=== PATIENT | male | born 1955 | race Caucasian/White ===

== ENCOUNTER → 2020-09-10 | Outpatient (CLI) | payer BC ==
--- NOTE | 2020-09-10 09:41 | Diagnostic Imaging Report ---
INDICATION: Rales. Time of exam 9:14 AM No prior studies are available for comparison. Heart size normal. There appears to be some minimal patchy infiltrates right perihilar region. There is some questionable infiltrate left base as well. No effusion or pneumothorax is seen. IMPRESSION: Patchy bibasilar infiltrates. Dictated by: Dictated on workstation # [id number]
== END ==
LOC: RAD FS 09:10
PROVIDERS: ATTEND Family Medicine
DX: R09.89 Other specified symptoms and signs involving the circulatory and respiratory systems (principal); R91.8 Other nonspecific abnormal finding of lung field
CPT/HCPCS: 71046

== ENCOUNTER 2023-01-19 07:54 | Observation (INO) | payer BC, MEDICARE, OTHER ==
[~2023-01-19] VITALS: Ht 185.5 cm; Wt 90.4 kg
--- NOTE | 2023-01-19 08:06 | ED Cardiac General ---
History of Present Illness General Chief Complaint: Cardiac/General Problems Stated Complaint: TACHY, LEATHA LOWER EXT EDEMA History of Present Illness Date Seen by Provider: Jan 19, 2023 Time Seen by Provider: 08:03 Initial Comments 67-year-old male with PMH of DM2/A-fib diagnosed when he was 37 years old, who was not on any medication for A-fib for the past 20 years or so, is sent here from urgent care for assessment of tachycardia. Patient states that he went to urgent care for leg swelling. In the ER patient is asymptomatic, and does not have any chest pain or shortness of breath. Patient is also denying palpitati ons at this time. Denies abdominal pain, diaphoresis, dizziness, headache, abdominal pain, fever, nausea and vomiting, abdominal distention. Patient used to be on atenolol over 20 years ago, but he stopped it because he was having erection issues at that time, and was not restarted on anything else. Patient is not on a blood thinner. No history of heart attack or strokes. Patient smokes an occasional cigar. Allergies and Home Medications Allergies Coded Allergies: Penicillins (Verified Allergy, Unknown, 01/19/23) Patient Home Medication List Home Medication List Reviewed: Yes Review of Systems Review of Systems Constitutional: no symptoms reported EENTM: No Symptoms Reported Respiratory: No Symptoms Reported Cardiovascular: See HPI, Edema Gastrointestinal: No Symptoms Reported Genitourinary: No Symptoms Reported Musculoskeletal: no symptoms reported Skin: no symptoms reported Psychiatric/Neurological: No Symptoms Reported Endocrine: No Symptoms Reported Hematologic/Lymphatic: No Symptoms Reported Physical Exam Vital Signs Vital Signs - First Documented 01/19/23 08:13 Temp 35.6 Pulse 160 Resp 20 B/P (MAP) 140/102 (115) Pulse Ox 97 O2 Delivery Room Air Capillary Refill : Height, Weight, BMI Height: '" Weight: lbs. oz. kg; BMI Method: General Appearance: No Apparent Distress, WD/WN HEENT: PERRL/EOMI, Other (Papular growth seen externally on the left side of the nose) Neck: Normal Inspection, Non Tender Respiratory: Chest Non Tender, Lungs Clear, Normal Breath Sounds, No Accessory Muscle Use Cardiovascular: Irregularly Irregular, Tachycardia, Other (Bilateral pitting pedal pedal edema, 2+) Gastrointestinal: Normal Bowel Sounds, Non Tender, Soft Extremity: Normal Range of Motion Neurologic/Psychiatric: Alert, Oriented x3, No Motor/Sensory Deficits, Normal Mood/Affect Skin: Normal Color Progress/Results/Core Measures Results/Orders Lab Results Laboratory Tests Test 01/19/23 08:09 Range/Units White Blood Count 10.4 4.3-11.0 10^3/uL Red Blood Count 5.62 H 4.30-5.52 10^6/uL Hemoglobin 17.8 H 13.3-17.7 g/dL Hematocrit 53 40-54 % Mean Corpuscular Volume 95 80-99 fL Mean Corpuscular Hemoglobin 32 25-34 pg Mean Corpuscular Hemoglobin Concent 34 32-36 g/dL Red Cell Distribution Width 14.3 10.0-14.5 % Platelet Count 169 130-400 10^3/uL Mean Platelet Volume 12.0 9.0-12.2 fL Immature Granulocyte % (Auto) 0 % Neutrophils (%) (Auto) 75 42-75 % Lymphocytes (%) (Auto) 15 12-44 % Monocytes (%) (Auto) 9 0-12 % Eosinophils (%) (Auto) 1 0-10 % Basophils (%) (Auto) 1 0-10 % Neutrophils # (Auto) 7.8 1.8-7.8 10^3/uL Lymphocytes # (Auto) 1.5 1.0-4.0 10^3/uL Monocytes # (Auto) 0.9 0.0-1.0 10^3/uL Eosinophils # (Auto) 0.1 0.0-0.3 10^3/uL Basophils # (Auto) 0.1 0.0-0.1 10^3/uL Immature Granulocyte # (Auto) 0.0 0.0-0.1 10^3/uL Prothrombin Time 14.6 12.2-14.7 SEC INR Comment 1.1 0.8-1.4 Activated Partial Thromboplast Time 26 24-35 SEC D-Dimer 1.81 H 0.00-0.49 UG/ML Sodium Level 139 135-145 MMOL/L Potassium Level 3.8 3.6-5.0 MMOL/L Chloride Level 104 98-107 MMOL/L Carbon Dioxide Level 23 21-32 MMOL/L Anion Gap 12 5-14 MMOL/L Blood Urea Nitrogen 27 H 7-18 MG/DL Creatinine 0.91 0.60-1.30 MG/DL Estimat Glomerular Filtration Rate 92 BUN/Creatinine Ratio 30 Glucose Level 248 H 70-105 MG/DL Calcium Level 9.6 8.5-10.1 MG/DL Corrected Calcium 9.4 8.5-10.1 MG/DL Magnesium Level 2.3 1.6-2.4 MG/DL Total Bilirubin 0.9 0.1-1.0 MG/DL Aspartate Amino Transf (AST/SGOT) 139 H 5-34 U/L Alanine Aminotransferase (ALT/SGPT) 162 H 0-55 U/L Alkaline Phosphatase 156 H 40-136 U/L Troponin I < 0.30 <0.30 NG/ML Pro-B-Type Natriuretic Peptide 5438.0 H <125.0 PG/ML Total Protein 7.3 6.4-8.2 GM/DL Albumin 4.2 3.2-4.5 GM/DL Serum Alcohol < 10 <10 MG/DL My Orders Orders - SRINI ALVAREZ MD Continuous Ekg Monitoring (01/19/23 08:06) Ekg Tracing (01/19/23 08:06) Cbc With Automated Diff (01/19/23 08:06) Comprehensive Metabolic Panel (01/19/23 08:06) Fibrin Degradation Products (01/19/23 08:06) Drug Screen Stat (Urine) (01/19/23 08:06) Magnesium (01/19/23 08:06) Protime With Inr (01/19/23 08:06) Partial Thromboplastin Time (01/19/23 08:06) Ua Culture If Indicated (01/19/23 08:06) Probnp Fs (01/19/23 08:06) Troponin I Fs (01/19/23 08:06) Chest 1 View Ap/Pa Only (01/19/23 08:07) Diltiazem Drip Pre-Mix (Cardizem Drip Pr (01/19/23 08:17) Diltiazem Injection (Cardizem Injection) (01/19/23 08:17) Apixaban Tablet (Eliquis Tablet) (01/19/23 08:30) Alcohol (01/19/23 08:57) Ct Angio Chest W (01/19/23 09:03) Iohexol Injection (Omnipaque 350 Mg/Ml 1 (01/19/23 09:15) Received Contrast (Hold Metformin- Contr (01/19/23 09:15) Ns (Ivpb) (Sodium Chloride 0.9% Ivpb Bag (01/19/23 09:15) Ed Admission (Communication) (01/19/23 10:17) Medications Given in ED Current Medications Medications Dose Ordered Sig/Juan J Route Start Time Stop Time Status Last Admin Dose Admin Iohexol 100 ml ONCE ONCE IV 01/19/23 09:15 01/19/23 09:16 DC 01/19/23 09:40 100 ML Sodium Chloride 100 ml ONCE ONCE IV 01/19/23 09:15 01/19/23 09:16 DC 01/19/23 09:40 100 ML Vital Signs/I&O 01/19/23 01/19/23 01/19/23 08:13 08:22 08:35 Temp 35.6 Pulse 160 159 124 Resp 20 B/P (MAP) 140/102 (115) 131/104 113/86 Pulse Ox 97 O2 Delivery Room Air Progress Progress Note : Progress Note 1. A-FIB WITH RVR: - CXR: pleural effusion - EKG shows atrial fibrillation with RVR - Troponin: Undetectable - CBC: Unremarkable except elevated hemoglobin - CMP: elevated liver enzymes with AST: 139, ALT : 162, and alk phos: 156. - s. ETOH: negative - UA: not given -Cardizem bolus 10 mg, and Cardizem drip started - [id number] score is 2 - Eliquis 5 mg tab given prior to labs coming back. After labs came back, noticed that pt has elevated liver enzymes, called cardiology consult and discussed via phone - Discussed with hospitalist and will admit to ICU 2. ELEVATED D-DIMER: - D-dimer is 1.81 - CTA CHEST: Negative fro PE, bilateral pleural effusion, right greater than left 3. CHF: - New onset likely - CXR and CTA chest show pleural effusion, BNP is elevated: 5,438, and clinically bilateral pedal edema present, which indicate a need for CHF work-up - Will need further work-up with cardiology and will need ECHO Diagnostic Imaging Diagonstic Imaging: Xray, CT Plain Films/CT/US/NM/MRI: chest Comments [facility] [place] NAME: [facility]ON [facility]WKINS [facility] REC#: [id number] PT STATUS: REG ER : 1955 PHYSICIAN: SRINI ALVAREZ MD ADMIT DATE: 01/19/23/ER FS Draft Date of Exam:01/19/23 CT ANGIO CHEST W PROCEDURE: CT angiography of the chest with contrast. TECHNIQUE: Multiple contiguous axial images were obtained through the chest after uneventful bolus administration of intravenous contrast. 3D reconstructed CTA MIP acquisitions were also performed. Auto Exposure Controls were utilized during the CT exam to meet ALARA standards for radiation dose reduction. INDICATION: Bilateral leg swelling and shortness of breath. No prior studies are available for comparison. Evaluation of pulmonary arterial system is without evidence of thromboembolus. No definite filling defects are seen within central, lobar or segmental branches. Aorta is normal in caliber. No pericardial fluid is seen. There is trace pleural fluid on the left with small right pleural effusion on the right. No pulmonary infiltrates are seen. There is some compressive atelectasis in the right lower lobe. Upper abdomen does show some trace perihepatic ascites. IMPRESSION: 1. No evidence of pulmonary embolism. 2. Bilateral pleural effusions, right greater with right basilar atelectasis. Dictated on workstation # [id number] Dict: 01/19/2349 Trans: 01/19/23 0959 [facility] [id number] Interpreted by: SUNDEEP IBRAHIM MD Electronically signed by: [facility] [place], [place] NAME: KEYON HAWKINS REC#: [id number] PT STATUS: REG ER : 1955 PHYSICIAN: SRINI ALVAREZ MD ADMIT DATE: 01/19/23/ER FS Draft Date of Exam:01/19/23 CHEST 1 VIEW AP/PA ONLY EXAMINATION: Chest 1 view HISTORY: palpitations COMPARISON: 09/10/2020 FINDINGS: Heart size and pulmonary vasculature are normal. There is a small right pleural effusion. No focal consolidation or pneumothorax. The osseous structures are intact. IMPRESSION: 1. Small right pleural effusion. No other acute radiographic abnormality in the chest. Dictated on workstation # [id number] Dict: 01/19/23825 Trans: 01/19/23827 [id number] Interpreted by: RIDDHI BELTRAN DO Electronically signed by: Departure Communication (Admissions) Time/Spoke to Admitting Phy: 10:10 Discussed with hospitalist, Dr. Martell and accepted to admission to ICU Time/Spoke to Consulting Phy: 09:40 Marah with supervisor wet end, Dr. Ashford. Initial consult concern was giving Eliquis prior to checking LFTs and LFT showing elevated liver enzymes. Reassurance was given by supervisor wet end. Advised admission to ICU since patient is on a Cardizem drip for A-fib with RVR. Impression Primary Impression: Atrial fibrillation with rapid ventricular response Additional Impressions: Elevated d-dimer CHF NYHA class I (no symptoms from ordinary activities) Qualified Codes: I50.9 - Heart failure, unspecified Disposition: 30 STILL A PATIENT Condition: Stable Admissions Decision to Admit Reason: Admit from ER (General) Decision to Admit/Date: Jan 19, 2023 Time/Decision to Admit Time: 09:15 Transfer Method of Transfer: EMS Departure-Patient Inst. Referrals: MIHAELA FARRELL MD (PCP) Primary Care Physician SRINI ALVAREZ MD Jan 19, 2023 08:06
[2023-01-19 08:17] LABS: BASOPHILS # (AUTO) 0.1 10^3/uL (0.0-0.1); BASOPHILS % (AUTO) 1 % (0-10); EOSINOPHILS # (AUTO) 0.1 10^3/uL (0.0-0.3); EOSINOPHILS % (AUTO) 1 % (0-10); HEMATOCRIT 53 % (40-54); HEMOGLOBIN 17.8 g/dL (13.3-17.7); LYMPHOCYTES # (AUTO) 1.5 10^3/uL (1.0-4.0); LYMPHOCYTES % (AUTO) 15 % (12-44); MEAN CORPUSCULAR HEMOGLOBIN 32 pg (25-34); MEAN CORPUSCULAR HGB CONC 34 g/dL (32-36); MEAN CORPUSCULAR VOLUME 95 fL (80-99); MONOCYTES # (AUTO) 0.9 10^3/uL (0.0-1.0); MONOCYTES % (AUTO) 9 % (0-12); NEUTROPHILS # (AUTO) 7.8 10^3/uL (1.8-7.8); NEUTROPHILS % (AUTO) 75 % (42-75); PLATELET COUNT 169 10^3/uL (130-400); WHITE BLOOD COUNT 10.4 10^3/uL (4.3-11.0)
[2023-01-19] MEDS ORDERED: dilTIAZem DRIP PRE-MIX 125 ML IV STA (08:17)
--- NOTE | 2023-01-19 08:29 | Diagnostic Imaging Report ---
EXAMINATION: Chest 1 view HISTORY: palpitations COMPARISON: 09/10/2020 FINDINGS: Heart size and pulmonary vasculature are normal. There is a small right pleural effusion. No focal consolidation or pneumothorax. The osseous structures are intact. IMPRESSION: 1. Small right pleural effusion. No other acute radiographic abnormality in the chest. Dictated by: Dictated on workstation # [id number]
[2023-01-19] MEDS ORDERED: APIXABAN 5 MG (ELIQUIS) TABLET PO STA (08:30)
[2023-01-19 08:32] LABS: INR 1.1 (0.8-1.4); PROTHROMBIN TIME PATIENT 14.6 SEC (12.2-14.7)
[2023-01-19 08:36] LABS: ALANINE AMINOTRANSFERASE 162 U/L (0-55); ALBUMIN 4.2 GM/DL (3.2-4.5); ALKALINE PHOSPHATASE 156 U/L (40-136); BILIRUBIN,TOTAL 0.9 MG/DL (0.1-1.0); BUN/CREATININE RATIO 30; CALCIUM 9.6 MG/DL (8.5-10.1); CARBON DIOXIDE 23 MMOL/L (21-32); CHLORIDE 104 MMOL/L (98-107); CREATININE SERUM 0.91 MG/DL (0.60-1.30); GFR ESTIMATED 92; GLUCOSE 248 MG/DL (70-105); MAGNESIUM 2.3 MG/DL (1.6-2.4); POTASSIUM 3.8 MMOL/L (3.6-5.0); SODIUM 139 MMOL/L (135-145); TOTAL PROTEIN 7.3 GM/DL (6.4-8.2)
[2023-01-19 08:39] LABS: FIBRIN DEGRADATION PRODUCTS 1.81 UG/ML (0.00-0.49)
[2023-01-19] MEDS ORDERED: HOLD METFORMIN - RECEIVED CONTRAST 20 ML VIAL IV SCH (09:15)
[2023-01-19] MEDS ORDERED: IOHEXOL 350 MG/ML 100 ML (OMNIPAQUE 350) VIAL IV ONE (09:15)
[2023-01-19] MEDS ORDERED: NS 100 ML (IVPB) BAG IV ONE (09:15)
--- NOTE | 2023-01-19 09:59 | Diagnostic Imaging Report ---
PROCEDURE: CT angiography of the chest with contrast. TECHNIQUE: Multiple contiguous axial images were obtained through the chest after uneventful bolus administration of intravenous contrast. 3D reconstructed CTA MIP acquisitions were also performed. Auto Exposure Controls were utilized during the CT exam to meet ALARA standards for radiation dose reduction. INDICATION: Bilateral leg swelling and shortness of breath. No prior studies are available for comparison. Evaluation of pulmonary arterial system is without evidence of thromboembolus. No definite filling defects are seen within central, lobar or segmental branches. Aorta is normal in caliber. No pericardial fluid is seen. There is trace pleural fluid on the left with small right pleural effusion on the right. No pulmonary infiltrates are seen. There is some compressive atelectasis in the right lower lobe. Upper abdomen does show some trace perihepatic ascites. IMPRESSION: 1. No evidence of pulmonary embolism. 2. Bilateral pleural effusions, right greater with right basilar atelectasis. Dictated by: Dictated on workstation # [id number]
[2023-01-19] MEDS ORDERED: ANTACID SUSP 30 ML UDC (MYLANTA) PO PRN (11:00)
[2023-01-19] MEDS ORDERED: ACETAMINOPHEN 325 MG TABLET PO PRN (11:00)
[2023-01-19] MEDS ORDERED: ONDANSETRON 4 MG/2 ML (SDV) Z0FRAN IV PRN (11:00)
[2023-01-19] MEDS ORDERED: ONDANSETRON 4 MG (ZOFRAN) ORAL DISSOLVE TAB PO PRN (11:00)
[2023-01-19] MEDS ORDERED: diphenhydrAMINE 50 MG/ML INJ (BENADRYL) IVP PRN (11:00)
[2023-01-19] MEDS ORDERED: BISACODYL 10 MG SUPP (DULCOLAX) PR PRN (11:00)
[2023-01-19] MEDS ORDERED: NS IV 500 ML 500 ML IV PRN (11:00)
[2023-01-19] MEDS ORDERED: diphenhydrAMINE 25 MG TAB (BENADRYL) PO PRN (11:00)
[2023-01-19] MEDS ORDERED: polyethylene glycoL POWDER 17 GM (MIRALAX) PACK PO PRN (11:00)
[2023-01-19] MEDS ORDERED: MELATONIN 3 MG TABLET PO PRN (11:00)
[2023-01-19] MEDS ORDERED: HYDROmorphone 2 MG/ML VIAL (DILAUDID) IV PRN (11:00)
[2023-01-19 12:50] VITALS: BP 140/102
[2023-01-19] MEDS ORDERED: RT-ALBUTEROL/IPRATROPIUM 3 ML (DUONEB) VIAL INH PRN (13:00)
[2023-01-19] MEDS ORDERED: NS IV 1000 ML 1,000 ML IV ONE (13:00)
--- NOTE | 2023-01-19 14:07 | Consultation-Cardiology ---
HPI-Cardiology Cardiology Consultation Date of Consultation 01/19/23 Date of Admission Time Seen by Provider: 14:02 Indication: Atrial fibrillation HPI 67-year-old gentleman with history of diabetes mellitus, hyperlipidemia, history of paroxysmal atrial fibrillation. He was noted to be in atrial fibrillation about 3 to 4 weeks ago with his primary care physician scheduled for an outpatient appointment. Patient canceled his appointment. About 2 days ago started to have increasing pedal edema and difficulty sleeping. He denied any chest pain. No palpitation. No fever or chills. Reported that he had multiple ticks in his body over the last few weeks. Home Medications & Allergies Allergies: Coded Allergies: Penicillins (Verified Allergy, Unknown, 01/19/23) Home Medication List Reviewed: Yes [id number] Hx Patient Social History Marital Status: Employed/Student: employed Alcohol Use?: Yes Past Medical History Discussed below Family Medical History Significant Family History: Heart Disease Review of Systems-General Review of Systems Constitutional: no symptoms reported EENTM: see HPI, no symptoms reported Respiratory: no symptoms reported, see HPI, dyspnea on exertion, orthopnea Cardiovascular: see HPI, edema Gastrointestinal: no symptoms reported, see HPI Genitourinary: no symptoms reported, see HPI Musculoskeletal: no symptoms reported Skin: no symptoms reported Psychiatric/Neurological: No Symptoms Reported Reviewed Test Results Reviewed Test Results Lab Laboratory Tests Test 01/19/23 08:09 01/19/23 12:32 Range/Units White Blood Count 10.4 4.3-11.0 10^3/uL Red Blood Count 5.62 H 4.30-5.52 10^6/uL Hemoglobin 17.8 H 13.3-17.7 g/dL Hematocrit 53 40-54 % Mean Corpuscular Volume 95 80-99 fL Mean Corpuscular Hemoglobin 32 25-34 pg Mean Corpuscular Hemoglobin Concent 34 32-36 g/dL Red Cell Distribution Width 14.3 10.0-14.5 % Platelet Count 169 130-400 10^3/uL Mean Platelet Volume 12.0 9.0-12.2 fL Immature Granulocyte % (Auto) 0 % Neutrophils (%) (Auto) 75 42-75 % Lymphocytes (%) (Auto) 15 12-44 % Monocytes (%) (Auto) 9 0-12 % Eosinophils (%) (Auto) 1 0-10 % Basophils (%) (Auto) 1 0-10 % Neutrophils # (Auto) 7.8 1.8-7.8 10^3/uL Lymphocytes # (Auto) 1.5 1.0-4.0 10^3/uL Monocytes # (Auto) 0.9 0.0-1.0 10^3/uL Eosinophils # (Auto) 0.1 0.0-0.3 10^3/uL Basophils # (Auto) 0.1 0.0-0.1 10^3/uL Immature Granulocyte # (Auto) 0.0 0.0-0.1 10^3/uL Prothrombin Time 14.6 12.2-14.7 SEC INR Comment 1.1 0.8-1.4 Activated Partial Thromboplast Time 26 24-35 SEC D-Dimer 1.81 H 0.00-0.49 UG/ML Sodium Level 139 135-145 MMOL/L Potassium Level 3.8 3.6-5.0 MMOL/L Chloride Level 104 98-107 MMOL/L Carbon Dioxide Level 23 21-32 MMOL/L Anion Gap 12 5-14 MMOL/L Blood Urea Nitrogen 27 H 7-18 MG/DL Creatinine 0.91 0.60-1.30 MG/DL Estimat Glomerular Filtration Rate 92 BUN/Creatinine Ratio 30 Glucose Level 248 H 70-105 MG/DL Calcium Level 9.6 8.5-10.1 MG/DL Corrected Calcium 9.4 8.5-10.1 MG/DL Magnesium Level 2.3 1.6-2.4 MG/DL Total Bilirubin 0.9 0.1-1.0 MG/DL Aspartate Amino Transf (AST/SGOT) 139 H 5-34 U/L Alanine Aminotransferase (ALT/SGPT) 162 H 0-55 U/L Alkaline Phosphatase 156 H 40-136 U/L Troponin I < 0.30 <0.30 NG/ML Pro-B-Type Natriuretic Peptide 5438.0 H <125.0 PG/ML Total Protein 7.3 6.4-8.2 GM/DL Albumin 4.2 3.2-4.5 GM/DL Serum Alcohol < 10 <10 MG/DL Glucometer 155 H 70-110 MG/DL Physical Exam Physical Exam Vital Signs Vital Signs - First Documented 01/19/23 01/19/23 01/19/23 08:13 12:50 13:53 Temp 35.6 Pulse 160 Resp 20 B/P (MAP) 140/102 (115) Pulse Ox 97 O2 Delivery Room Air O2 Flow Rate 0.00 FiO2 21 Capillary Refill : Less Than 3 Seconds Height, Weight, BMI Height: '" Weight: lbs. oz. kg; 25.74 BMI Method: General Appearance: No Apparent Distress, WD/WN Eyes: Bilateral Eye Normal Inspection, Bilateral Eye PERRL, Bilateral Eye EOMI HEENT: PERRL/EOMI, Other (Papular growth seen externally on the left side of the nose) Neck: Normal Inspection, Non Tender Respiratory: Chest Non Tender, Lungs Clear, Normal Breath Sounds, No Accessory Muscle Use Cardiovascular: Irregularly Irregular, Tachycardia, Other (Bilateral pitting pedal pedal edema, 2+) Gastrointestinal: Normal Bowel Sounds, Non Tender, Soft Back: Normal Inspection, No CVA Tenderness, No Vertebral Tenderness Extremity: Normal Range of Motion, Pedal Edema Neurologic/Psychiatric: Alert, Oriented x3, No Motor/Sensory Deficits, Normal Mood/Affect Skin: Normal Color Lymphatic: No Adenopathy A/P-Cardiology Admission Diagnosis Atrial fibrillation Tachycardia Congestive heart failure, acute dilated cardiomyopathy. Unknown etiology Diabetes mellitus Assessment/Plan Atrial fibrillation with rapid ventricular response. Unknown duration, history of paroxysmal atrial fibrillation in his 30s. Has been asymptomatic Noted to have atrial fibrillation within the last month. Currently having rapid ventricular response, started on Cardizem drip and Eliquis Planning for MARK with electrical cardioversion if he did not convert on his own. [id number] score 4, starting on oral anticoagulation with Eliquis. Congestive heart failure, acute left ventricular systolic dysfunction, ejection fraction 35 to 40%. Planning to start beta-blockers and ARB once his blood pressure is more stable. Underlying etiology is unknown could be secondary to atrial fibrillation. Patient had exposure to tick bite. Underlying coronary artery disease cannot be excluded. Borderline hypotension. Secondary to Cardizem drip Monitor blood pressure closely Peripheral edema, planning to start diuresing once his blood pressure is more stable. Hyperlipidemia, evaluate lipid profile Hold statin due to elevated liver enzymes Elevated liver enzymes. Could be passive hepatic congestion. Monitor liver enzymes closely, will hold statin for now Diabetes mellitus, poorly controlled, followed and managed by primary care physician Family history of coronary artery disease Multiple tick bite exposure recently. We will evaluate take panel and Lyme titers Clinical Quality Measures DVT/VTE Risk/Contraindication: Contraindications-Mechi: Other *list below* Other: elevated ddimer may have DVT ANA CRISTINA ROMANO MD Jan 19, 2023 14:07
--- NOTE | 2023-01-19 14:55 | Diagnostic Imaging Report ---
PROCEDURE: US Abdomen, limited. TECHNIQUE: Multiple real-time grayscale images were obtained over the abdomen in various projections. INDICATION: Ascites. COMPARISON: CTA of the chest from earlier same day. FINDINGS: Liver is mildly enlarged. It measures 18.2 cm in length. Hepatic echotexture is within normal limits. No focal suspicious mass is seen. Portal vein shows normal hepatopetal flow. No intra- or extra-hepatic biliary dilatation is present. The common bile duct is not dilated and measures 4-5 mm. Gallbladder is visualized. Gallbladder wall is thickened at 4-5 mm, but there is no evidence of cholelithiasis. No pericholecystic free fluid is seen. Gallbladder does appear incompletely distended. The pancreas is not well visualized due to overlying bowel gas. There is trace ascites. Small right effusion is also noted. The right kidney measures approximately 10.8 cm in length. Small anechoic benign-appearing cyst is present within the mid region and measures 1.3 x 1.1 x 1.1 cm. No suspicious solid renal masses are seen. There is no evidence of hydronephrosis or calculus. Aorta is not well visualized. Visualized portions of the IVC are unremarkable. IMPRESSION: 1. Gallbladder wall is thickened, but this may be related to underdistention. There is no evidence of cholelithiasis or pericholecystic free fluid to suggest acute cholecystitis. Gallbladder wall thickening may also be seen in states of hypoproteinemia and congestive heart or liver failure. 2. Right pleural effusion and trace ascites. 3. Mild hepatomegaly. Dictated by: Dictated on workstation # [id number]
--- NOTE | 2023-01-19 14:55 | Diagnostic Imaging Report ---
PROCEDURE: US Venous Lower Ext Vinnie. TECHNIQUE: Multiple real-time grayscale images were obtained over the lower extremities in various projections, bilaterally. Additional duplex Doppler and color Doppler images were also obtained. INDICATION: Bilateral lower extremity swelling. FINDINGS: There is no evidence of right or left lower extremity DVT. Both lower extremity deep venous systems demonstrate normal compressibility with normal response to augmentation and Valsalva. No fluid collection or mass is detected. IMPRESSION: No evidence of right or left lower extremity DVT. Dictated by: Dictated on workstation # [id number]
[2023-01-19] MEDS ORDERED: ASCO500T17 PO (15:50)
[2023-01-19] MEDS ORDERED: CYAN-41 PO (15:50)
[2023-01-19] MEDS ORDERED: OXYB10TA29 PO (15:50)
[2023-01-19] MEDS ORDERED: TMSL.4C PO (15:50)
[2023-01-19] MEDS ORDERED: FAMO20TA3 PO (15:50)
[2023-01-19] MEDS ORDERED: PRAV40TA2 PO (15:50)
[2023-01-19] MEDS ORDERED: ASPI-1238 PO (15:50)
[2023-01-19] MEDS ORDERED: CANA300T PO (15:50)
[2023-01-19] MEDS ORDERED: GLIM4TAB5 PO (15:50)
[2023-01-19] MEDS: inSUlin ASPART (NovoLOG) 1 UNIT/0.01 ML (CHARGE PER UNIT) SC SCH ×2 (16:40→21:00)
[2023-01-19] MEDS: PANTOPRAZOLE 40 MG (PROTONIX) TAB PO SCH (16:44)
--- NOTE | 2023-01-19 18:20 | History & Physical ---
History of Present Illness HPI/Chief Complaint Chief complaint: A-fib with RVR HPI: This is a 67-year-old male clinic patient of Dr. Wen who has a past medical history of atrial fibrillation since age 37 but presented to the ER for lower extremity edema after he presented to the walk-in clinic and they directed him towards the ER. Echocardiogram was obtained showing ejection fraction of 35%. Pursuing other sources of cardiomyopathy. Patient was placed on ant icoagulation due to stroke risk. Source: patient, family, RN/MD Exam Limitations: no limitations Date Seen 01/19/23 Time Seen by a Provider: 18:00 Attending Physician Aric Wen MD PCP Admitting Physician: Louis Martell DO Attending Physician: Louis Martell DO Referring Physician Date of Admission Jan 19, 2023 at 12:05 Home Medications & Allergies Home Medications Reviewed patient Home Medication Reconciliation performed by pharmacy medication reconciliations dyno technician and/or nursing. Patients Allergies have been reviewed. Allergies Allergies Coded Allergies Penicillins (Verified Allergy, Unknown, 01/19/23) Past Iccecwn-Yexhum-Ihmyom Hx Past Med/Social Hx: Reviewed Nursing Past Med/Soc Hx, Reviewed and Corrections made Patient Social History Marrital Status: Employed/Student: employed Alcohol Use: Denies Use Smoking Status: Former Smoker Recent Foreign Travel: No Contact w/other who traveled: No Past Medical History Cardiac: Atrial Fibrillation Family History Heart Disease Review of Systems Constitutional: see HPI, malaise, weakness Cardiovascular: edema Physical Exam Physical Exam Vital Signs Vital Signs - First Documented 01/19/23 01/19/23 01/19/23 08:13 12:50 13:53 Temp 35.6 Pulse 160 Resp 20 B/P (MAP) 140/102 (115) Pulse Ox 97 O2 Delivery Room Air O2 Flow Rate 0.00 FiO2 21 Capillary Refill : Less Than 3 Seconds Height, Weight, BMI Height: '" Weight: lbs. oz. kg; 25.74 BMI Method: General Appearance: No Apparent Distress, WD/WN, Chronically ill, Thin Eyes: Bilateral Eye Normal Inspection, Bilateral Eye PERRL, Bilateral Eye EOMI HEENT: PERRL/EOMI, Other (Papular growth seen externally on the left side of t he nose) Neck: Normal Inspection, Non Tender Respiratory: Chest Non Tender, Lungs Clear, Normal Breath Sounds, No Accessory Muscle Use Cardiovascular: Irregularly Irregular, Tachycardia, Other (Bilateral pitting pedal pedal edema, 2+) Gastrointestinal: Normal Bowel Sounds, Non Tender, Soft Back: Normal Inspection, No CVA Tenderness, No Vertebral Tenderness Extremity: Normal Range of Motion, Pedal Edema Neurologic/Psychiatric: Alert, Oriented x3, No Motor/Sensory Deficits, Normal Mood/Affect Skin: Normal Color Lymphatic: No Adenopathy Results Results/Procedures Labs Laboratory Tests 01/19/23 08:09 01/20/23 03:56 Patient resulted labs reviewed. Assessment/Plan Admission Diagnosis Assessment: Atrial fibrillation with RVR History of atrial fibrillation since 37 years old New onset cardiomyopathy Lower extremity edema Plan: Echo Cardiology consult [facility] ICU Oral anticoagulation Admission Status: Observation Clinical Quality Measures DVT/VTE Risk/Contraindication: Contraindications-Mechi: Other *list below* Other: elevated ddimer may have DVT LOUIS MARTLEL DO Jan 19, 2023 18:20
--- NOTE | 2023-01-19 18:40 | Tele-ICU Consult ---
History of Present Illness History of Present Illness Date Seen by Provider: Jan 19, 2023 Time Seen by Provider: 18:40 Date of Admission Reason for Visit: Atrial fibrillation History of Present Illness (Tele-ICU Physician , consultation as per request of PCP Service provided via interactive audio and video telecommunbabberly E-CARE system to a patient admitted to ICU bed in [facility]. Available chart/ vitals / labs / Images reviewed H&P is from ER notes Patient's information available about PMH, Shx, Fhx allergy reviewed inEMR. ROS as per chart and RN report Now in ICU, hemodynamically stable Video assessment done using teleICU camera, rest of exam as per RN Discussed with RN. Hospital course: A/P Atrial fibrillation with rapid ventricular response ( CTA neg for PE - as pr cardiology -Planning for possible MARK with electrical cardioversion -ECHO done - on Cardizem drip and Eliquis CHF with plural effusions and JOSE FRANCISCO - EF 35 to 40%. - as per cards - diuresis if BP tolerates Elev dddimer - US LE - No evidence of right or left lower extremity DVT - CTA chest - NO PE Elevated liver enzymes. -? hepatic congestion. DM - ISS Multiple tick bite exposure recently. - tick panel and Lyme titers been ordered Lines : periph , (Central Line Necessity Reviewed) Ruiz: OG: Nutrition: Analgesia: Anxiety/ delirium VTE Prophylaxis: eliquis Stress Ulcer Prophylaxis: na Plans in collaboration with bedside consultants and IM MDs. Discussed with RN to reach out if any questions or concerns A total of 20 minutes of critical care time was devoted to this patient today, required to treat and/or prevent further deterioration of critical care condition ( as above ) . I am remotely monitoring this patient from another state. I am unable to do the bedside exam, and history/physical and pertinent information is taken from other notes in the computer and bedside staff. . Allergies and Home Medications Allergies Coded Allergies: Penicillins (Verified Allergy, Unknown, 01/19/23) Home Medications Ascorbic Acid 500 Mg Tablet, 500 MG PO DAILY, (Reported) Aspirin 81 Mg Tablet.dr, 81 MG PO DAILY, (Reported) Canagliflozin 300 Mg Tablet, 300 MG PO DAILY, (Reported) Cyanocobalamin (Vitamin B-12) 1,000 Mcg Tablet, 1,000 MCG PO DAILY, (Reported) Famotidine 20 Mg Tablet, 20 MG PO DAILY, (Reported) LAST FILLED 11-28-2022 #180/180 DAY SUPPLY Glimepiride 4 Mg Tablet, 4 MG PO DAILY, (Reported) Oxybutynin Chloride 10 Mg Tab.er.24, 10 MG PO DAILY, (Reported) Pravastatin Sodium 40 Mg Tablet, 40 MG PO DAILY, (Reported) Tamsulosin HCl 0.4 Mg Cap, 0.4 MG PO DAILY, (Reported) Past Medical/Social/Family Hx Patient Social History Marrital Status: Employed/Student: employed Tobacco Use?: No Substance use?: No Alcohol Use?: Yes Alcohol type: Beer Alcohol Frequency: Once in a while Pt stated abuse/neglect: No Immunizations Up To Date Influenza Vaccine Up-to-Date: Yes; Up-to-Date Current Status Advance Directives: No Communicates: Verbally Primary Language: Swazi Preferred Spoken Language: Swazi Is interpretation needed?: No Sensory deficits: Vision impairment Review of Systems Constitutional: see HPI Focused Exam Height, Weight, BMI Height: '" Weight: lbs. oz. kg; 25.74 BMI Method: Exam Exam Patient acknowledged, consented, and participated in this virtual visit which was conducted using real time audio/video Vital Signs Date Time Temp Pulse Resp B/P (MAP) Pulse Ox O2 Delivery O2 Flow Rate FiO2 01/19/23 18:00 110 21 110/86 (94) 95 Room Air 01/19/23 17:00 110 21 117/100 (109) 95 Room Air 01/19/23 16:54 95 Room Air 01/19/23 16:00 101 16 121/105 (112) 90 Room Air 01/19/23 15:00 100 23 115/94 (105) 90 Room Air 01/19/23 14:00 103 23 96/64 (71) 95 Room Air 01/19/23 13:53 95 Room Air 0.00 01/19/23 13:33 123 109/78 01/19/23 13:05 142 01/19/23 13:00 128 10 109/78 (84) 93 Room Air 01/19/23 12:50 35.6 160 97 21 01/19/23 12:15 140 10 120/86 (97) 97 Room Air 01/19/23 12:10 95 Room Air 01/19/23 11:17 131 18 107/76 95 Room Air 01/19/23 08:35 124 113/86 6/9/23 08:22 159 131/104 01/19/23 08:13 35.6 160 20 140/102 (115) 97 Room Air Height & Weight Height: '" Weight: lbs. oz. kg; 25.74 BMI Method: General Appearance: No Apparent Distress, WD/WN, Other HEENT: PERRL/EOMI, Other (Papular growth seen externally on the left side of the nose) Neck: Normal Inspection, Non Tender Respiratory: Chest Non Tender, Lungs Clear, Normal Breath Sounds, No Accessory Muscle Use Cardiovascular: Irregularly Irregular, Tachycardia, Other (Bilateral pitting pedal pedal edema, 2+) Capillary Refill: Less Than 3 Seconds Extremity: Normal Range of Motion, Pedal Edema Neurologic/Psychiatric: Alert, Oriented x3, No Motor/Sensory Deficits, Normal Mood/Affect Skin: Normal Color Lymphatic: No Adenopathy Results Lab Laboratory Tests 01/19/23 08:09 Assessment/Plan Assessment/Plan 1 MADDISON NIÑO MD Jan 19, 2023 18:40
[2023-01-19] MEDS ORDERED: dilTIAZem DRIP PRE-MIX 125 ML IV ONE (18:44)
[2023-01-19] MEDS: dilTIAZem DRIP PRE-MIX 125 ML IV SCH (18:47)
[2023-01-19] MEDS: DOCUSATE SODIUM 100 MG (COLACE) CAP PO SCH (21:00)
[2023-01-19] MEDS: RT-ALBUTEROL/IPRATROPIUM 3 ML (DUONEB) VIAL INH SCH (21:02)
[2023-01-19] MEDS: APIXABAN 5 MG (ELIQUIS) TABLET PO SCH (21:29)
[2023-01-20] MEDS ORDERED: LORazepam 0.5 MG (ATIVAN) TABLET PO STA (00:27)
[2023-01-20 03:37] VITALS: BP 118/80
[2023-01-20] MEDS: dilTIAZem DRIP PRE-MIX 125 ML IV SCH (03:37)
[2023-01-20 04:54] LABS: BASOPHILS % (AUTO) 0 % (0-10); EOSINOPHILS # (AUTO) 0.1 10^3/uL (0.0-0.3); EOSINOPHILS % (AUTO) 1 % (0-10); HEMATOCRIT 47 % (40-54); HEMOGLOBIN 15.7 g/dL (13.3-17.7); LYMPHOCYTES # (AUTO) 1.8 10^3/uL (1.0-4.0); LYMPHOCYTES % (AUTO) 16 % (12-44); MEAN CORPUSCULAR HEMOGLOBIN 32 pg (25-34); MEAN CORPUSCULAR HGB CONC 34 g/dL (32-36); MEAN CORPUSCULAR VOLUME 94 fL (80-99); MEAN PLATELET VOLUME 12.6 fL (9.0-12.2); MONOCYTES % (AUTO) 10 % (0-12); NEUTROPHILS # (AUTO) 7.8 10^3/uL (1.8-7.8); NEUTROPHILS % (AUTO) 72 % (42-75); PLATELET COUNT 142 10^3/uL (130-400); WHITE BLOOD COUNT 10.7 10^3/uL (4.3-11.0)
[2023-01-20 05:23] LABS: ALBUMIN 3.5 GM/DL (3.2-4.5); BILIRUBIN,TOTAL 1.7 MG/DL (0.1-1.0); CALCIUM 8.6 MG/DL (8.5-10.1); CREATININE SERUM 0.8 MG/DL (0.60-1.30); MAGNESIUM 2.1 MG/DL (1.6-2.4); PHOSPHORUS 3.1 MG/DL (2.3-4.7); POTASSIUM 3.7 MMOL/L (3.6-5.0); TOTAL PROTEIN 5.8 GM/DL (6.4-8.2)
[2023-01-20] MEDS: inSUlin ASPART (NovoLOG) 1 UNIT/0.01 ML (CHARGE PER UNIT) SC SCH ×4 (05:48→21:00)
[2023-01-20] MEDS ORDERED: MAGNESIUM 1 GM/100 ML IVPB 100 ML IV SCH (06:00)
[2023-01-20] MEDS ORDERED: KCL 20 MEQ TAB (K-DUR) PO SCH (06:00)
[2023-01-20] MEDS ORDERED: POTASSIUM CL 10MEQ/50ML IVPB 50 ML IV SCH (06:00)
[2023-01-20] MEDS: POTASSIUM CL 10MEQ/50ML IVPB 50 ML IV SCH ×2 (06:06→07:34)
--- NOTE | 2023-01-20 07:18 | Progress Note ---
Subjective Date Seen by a Provider: Jan 20, 2023 Time Seen by a Provider: 11:00 Subjective/Events-last exam Patient doing much better Rate is controlled Cardioversion was unsuccessful because Dr. Ashford found a clot in the atrium Anticoagulation is recommended Moving to cardiac stepdown unit today Review of Systems General: Fatigue, Malaise Objective Exam Last Set of Vital Signs Vital Signs Date Time Temp Pulse Resp B/P (MAP) Pulse Ox O2 Delivery O2 Flow Rate FiO2 01/20/23 06:00 82 17 141/99 (113) 92 Room Air 01/19/23 13:53 0.00 01/19/23 12:50 35.6 21 Capillary Refill : Less Than 3 Seconds I&O Intake and Output 01/20/23 00:00 Intake Total 2175 ml Output Total 925 ml Balance 1250 ml Intake Oral 1050 ml IV Total 1125 ml Output Urine Total 925 ml Daily Weight Change No General: Alert, Oriented X3, Cooperative, No Acute Distress Lungs: Clear to Auscultation, Normal Air Movement Heart: Other (Irregular irregular) Psych/Mental Status: Mental Status NL, Mood NL Results Lab Laboratory Tests 01/19/23 08:09: White Blood Count 10.4, Red Blood Count 5.62H, Hemoglobin 17.8H, Hematocrit 53, Mean Corpuscular Volume 95, Mean Corpuscular Hemoglobin 32, Mean Corpuscular Hemoglobin Concent 34, Red Cell Distribution Width 14.3, Platelet Count 169, Mean Platelet Volume 12.0, Immature Granulocyte % (Auto) 0, Neutrophils (%) (Auto) 75, Lymphocytes (%) (Auto) 15, Monocytes (%) (Auto) 9, Eosinophils (%) (Auto) 1, Basophils (%) (Auto) 1, Neutrophils # (Auto) 7.8, Lymphocytes # (Auto) 1.5, Monocytes # (Auto) 0.9, Eosinophils # (Auto) 0.1, Basophils # (Auto) 0.1, Immature Granulocyte # (Auto) 0.0, Prothrombin Time 14.6, INR Comment 1.1, Activated Partial Thromboplast Time 26, D-Dimer 1.81H, Sodium Level 139, Potassium Level 3.8, Chloride Level 104, Carbon Dioxide Level 23, Anion Gap 12, Blood Urea Nitrogen 27H, Creatinine 0.91, Estimat Glomerular Filtration Rate 92, BUN/Creatinine Ratio 30, Glucose Level 248H, Calcium Level 9.6, Corrected Calcium 9.4, Magnesium Level 2.3, Total Bilirubin 0.9, Aspartate Amino Transf (AST/SGOT) 139H, Alanine Aminotransferase (ALT/SGPT) 162H, Alkaline Phosphatase 156H, Troponin I < 0.30, Pro-B-Type Natriuretic Peptide 5438.0H, Total Protein 7.3, Albumin 4.2, Serum Alcohol < 10 01/19/23 12:32: Glucometer 155H 01/19/23 14:34: SARS-CoV-2 IgG Ab Nucleocapsid Negative 01/19/23 16:37: Glucometer 175H 01/19/23 21:28: Glucometer 166H 01/20/23 03:56: White Blood Count 10.7, Red Blood Count 4.97, Hemoglobin 15.7, Hematocrit 47, Mean Corpuscular Volume 94, Mean Corpuscular Hemoglobin 32, Mean Corpuscular Hemoglobin Concent 34, Red Cell Distribution Width 14.2, Platelet Count 142, Mean Platelet Volume 12.6H, Immature Granulocyte % (Auto) 0, Neutrophils (%) (Auto) 72, Lymphocytes (%) (Auto) 16, Monocytes (%) (Auto) 10, Eosinophils (%) (Auto) 1, Basophils (%) (Auto) 0, Neutrophils # (Auto) 7.8, Lymphocytes # (Auto) 1.8, Monocytes # (Auto) 1.0, Eosinophils # (Auto) 0.1, Basophils # (Auto) 0.0, Immature Granulocyte # (Auto) 0.0, Sodium Level 139, Potassium Level 3.7, Chloride Level 111H, Carbon Dioxide Level 17L, Anion Gap 11, Blood Urea Nitrogen 24H, Creatinine 0.80, Estimat Glomerular Filtration Rate 97, BUN/Creatinine Ratio 30, Glucose Level 120H, Calcium Level 8.6, Corrected Calcium 9.0, Phosphorus Level 3.1, Magnesium Level 2.1, Total Bilirubin 1.7H, Aspartate Amino Transf (AST/SGOT) 64H, Alanine Aminotransferase (ALT/SGPT) 122H, Alkaline Phosphatase 97, Troponin I 0.060H, Total Protein 5.8L, Albumin 3.5, Thyroid Stimulating Hormone (TSH) 0.12L Assessment/Plan Assessment/Plan Assess & Plan/Chief Complaint Assessment: Atrial fibrillation with RVR History of atrial fibrillation since 37 years old New onset cardiomyopathy Lower extremity edema Unable to perform cardioversion due to clot in atrium Plan: Echo Cardiology consult Moved to stepdown Oral anticoagulation Clinical Quality Measures DVT/VTE Risk/Contraindication: Contraindications-Mechi: Other *list below* Other: elevated ddimer may have DVT LOUIS SAGASTUME DO Jan 20, 2023 07:18
[2023-01-20] MEDS: RT-ALBUTEROL/IPRATROPIUM 3 ML (DUONEB) VIAL INH SCH ×2 (07:41→19:23)
[2023-01-20] MEDS ORDERED: LIDOCAINE 2% VISCOUS 15 ML UDC PO ONE (08:00)
--- NOTE | 2023-01-20 08:07 | Cardiology Progress Note ---
Subjective Date Seen by Provider: Jan 20, 2023 Time Seen by Provider: 08:04 Subjective/Events-last exam Patient was seen at bedside, laying down comfortably. No new complain Review of Systems General: No Chills, No Night Sweats; Fatigue; No Malaise, No Appetite, No Other HEENT: No Head Aches, No Visual Changes, No Eye Pain, No Ear Pain, No Dysphasia, No Sinus Congestion, No Post Nasal Drip, No Sore Throat, No Other Pulmonary: Dyspnea; No Cough, No Pleuritic Chest Pain, No Other Cardiovascular: Edema; No: Chest Pain, Palpitations, Orthopnea, Paroxysmal Noc. Dyspnea, Lt Headedness, Other Objective-Cardiology Exam Last Set of Vital Signs Vital Signs 01/19/23 01/20/23 01/20/23 01/20/23 12:50 07:42 07:59 08:00 Temp 36.4 Pulse 102 Resp 14 B/P (MAP) 133/92 (103) Pulse Ox 96 O2 Delivery Room Air O2 Flow Rate 0.00 FiO2 21 I&O Intake and Output 01/20/23 00:00 Intake Total 2175 ml Output Total 925 ml Balance 1250 ml Intake Oral 1050 ml IV Total 1125 ml Output Urine Total 925 ml Daily Weight Change No General: Alert, Oriented X3, Cooperative HEENT: Atraumatic, PERRLA Neck: Supple, No JVD, No Thyromegaly Lungs: Clear to Auscultation, Normal Air Movement Heart: Normal S1, Normal S2, No Murmurs, Other (Atrial fibrillation) Abdomen: Normal Bowel Sounds, Soft, No Tenderness, No Hepatosplenomegaly, No Masses Extremities: No Clubbing, No Cyanosis, Normal Pulses, No Tenderness/Swelling, Other (Peripheral edema) Skin: No Rashes, No Breakdown, No Significant Lesion Neuro: Normal Gait, Normal Speech, Strength at 5/5 X4 Ext, Normal Tone, Se nsation Intact Psych/Mental Status: Mental Status NL, Mood NL Results Lab Laboratory Tests 01/20/23 03:56 A/P-Cardiology Admission Diagnosis Atrial fibrillation Tachycardia Congestive heart failure, acute dilated cardiomyopathy. Unknown etiology Diabetes mellitus Assessment/Plan Atrial fibrillation with rapid ventricular response. Unknown duration, history of paroxysmal atrial fibrillation in his 30s. Has been asymptomatic Noted to have atrial fibrillation within the last month. Currently having rapid ventricular response, started on Cardizem drip and Eliquis Planning for MARK with electrical cardioversion 2D echo done on January 19, 2023 with dilated left ventricle ejection fraction 35 to 40%, grade 3 diastolic dysfunction, biatrial enlargement. Severe mitral regurgitation, PA pressure of 40 mmHg, PFO with aneurysmal intra-atrial septum [id number] score 4, starting on oral anticoagulation with Eliquis. Congestive heart failure, acute left ventricular systolic dysfunction, ejection fraction 35 to 40%. Planning to start beta-blockers and ARB once his blood pressure is more stable. Underlying etiology is unknown could be secondary to atrial fibrillation. Patient had exposure to tick bite. Underlying coronary artery disease cannot be excluded. Mild troponin elevation, probably secondary to tachycardia and congestive heart failure. Planning for stress test once clinically stable. Continue to monitor Hyperthyroidism, I will evaluate thyroid panel and thyroid ultrasound Could be the underlying cause for the atrial fibrillation and congestive heart failure. Borderline hypotension. Secondary to Cardizem drip Monitor blood pressure closely Peripheral edema, planning to start diuresing once his blood pressure is more stable. Hyperlipidemia, evaluate lipid profile Hold statin due to elevated liver enzymes Elevated liver enzymes. Could be passive hepatic congestion. Improving slightly. Continue to monitor Diabetes mellitus, poorly controlled, followed and managed by primary care physician Family history of coronary artery disease Multiple tick bite exposure recently. We will evaluate take panel and Lyme titers ANA CRISTINA ROMANO MD Jan 20, 2023 08:06
--- NOTE | 2023-01-20 08:07 | Cardiac Procedure Note-CS/ASA ---
Pre-Procedure Note Pre-Op Procedure Note Date of Available H&P: Jan 20, 2023 Date H&P Reviewed: Jan 20, 2023 Time H&P Reviewed: 08:07 History & Physical: H&P Reviewed, Patient Examed, No changes noted Pre-Operative Diagnosis: Atrial fibrillation Moderate Sedation PreProcedure Time 08:07 ASA Score 3 Airway Lungs Heart ASA score ASA 1: a normal healthy patient ASA 2: a patient with a mild systemic disease (mid diabetes, controlled hypertension, obesity ASA 3: a patient with a severe systemic disease that limits activity (angina, COPD, prior Myocardial infarction) ASA 4: a patient with an incapacitating disease that is a constant threat to life (CHF, renal failure) ASA 5: a moribund patient not expected to survive 24 hrs. (ruptured aneurysm) ASA 6: a declared brain- patient whose organs are being harvested. For emergent operations, add the letter E after the classification Mallampati Classification Grade 3 Sedation Plan Analgesia, Amnesia, Plan communicated to team members, Discussed options with patient/fam, Discussed risks with patient/fam The patient is an appropriate candidate to undergo the planned procedure, sedation, and anesthesia. The patient immediately re-assessed prior to indication. ANA CRISTINA ROMANO MD Jan 20, 2023 08:07
[2023-01-20] MEDS ORDERED: MIDAZOLAM 2 MG/2 ML (VERSED) VIAL ONE (08:41)
[2023-01-20] MEDS ORDERED: proPOfol 200 MG/20 ML (DIPRIVAN) VIAL IV ONE (08:41)
[2023-01-20] MEDS ORDERED: KETAMINE 50 MG/5 ML SYRINGE ONE (08:41)
[2023-01-20] MEDS ORDERED: DIGOXIN 0.25 MG/ML (LANOXIN) 2 ML AMP IV ONE (09:15)
--- NOTE | 2023-01-20 09:24 | Anesthesia-General Post-Op ---
MAC Patient Condition Mental Status/LOC: Same as Preop Cardiovascular: Satisfactory Nausea/Vomiting: Absent Respiratory: Satisfactory Pain: Controlled Complications: Absent Post Op Complications Complications None Follow Up Care/Instructions Patient Instructions None needed. Anesthesiology Discharge Order Discharge Order Patient is doing well, no complaints, stable vital signs, no apparent adverse anesthesia problems. No complications reported per nursing. TEMO MARTINEZ CRNA Jan 20, 2023 09:24
[2023-01-20] MEDS: APIXABAN 5 MG (ELIQUIS) TABLET PO SCH ×2 (10:06→21:30)
[2023-01-20] MEDS: PANTOPRAZOLE 40 MG (PROTONIX) TAB PO SCH (10:06)
[2023-01-20] MEDS: LOSARTAN 25 MG (COZAAR) TAB PO SCH (10:06)
[2023-01-20] MEDS: meTOprolol TARTRATE 25 MG (LOPRESSOR) TABLET PO SCH ×2 (10:06→21:30)
--- NOTE | 2023-01-20 10:51 | Tele-ICU Progress Note ---
Subjective Date Seen by a Provider: Jan 20, 2023 Time Seen by a Provider: 10:50 Subjective/Events-last exam (Tele-ICU Physician , Progress Note ) Service provided via interactive audio and video telecommunications E-CARE system to a patient admitted to ICU bed in [facility]. Patient is seen today due to persistent need of ICU care Available chart/ vitals / labs / Images reviewed Video assessment done using teleICU camera, rest of exam as per RN Discussed with RN Events overnight : Afebrile hemodynamically stable Respiratory - I/O =+ Drips: Pressors- no Hospital course: 01/19 -67 y/o male with afib rvr chf bilat pleural effusions R>L (+)ddimer negative PE . ECHO 01/19/23- EF 40% , suspected thrombus left atrium Severe MR , PA P of 40 mmHg, PFO with aneurysmal intra-atrial septum 01/20-MARK 01/20 with plans for with electrical cardioversion, BUT postponed with atrial thrombus , off cardizem gtt A/P Atrial fibrillation with rapid ventricular response ( CTA neg for PE - s/p MARK 01/20 with plans for with electrical cardioversion, BUT postponed with atrial thrombus - on Cardizem Po -AC Eliquis Left atrial thrombus - -AC eliquis CHF with plural effusions and JOSE FRANCISCO, ( acute dilated cardiomyopathy. Unknown etiology) - EF 35 to 40%, - as per cards - diuresis if BP tolerates - as per cards Elev dddimer - US LE - No evidence of right or left lower extremity DVT - CTA chest - NO PE Elevated liver enzymes. -? hepatic congestion IMPROVING DM - ISS Multiple tick bite exposure recently. - tick panel and Lyme titers been ordered Lines : periph , (Central Line Necessity Reviewed) Ruiz: void OG: Nutrition: po Analgesia: Anxiety/ delirium VTE Prophylaxis: eliquis Stress Ulcer Prophylaxis: na Plans in collaboration with bedside consultants and IM MDs. Discussed with RN to reach out if any questions or concerns A total of 20 minutes of critical care time was devoted to this patient today, required to treat and/or prevent further deterioration of critical care condition ( as above ) . I am remotely monitoring this patient from another state. I am unable to do the bedside exam, and history/physical and pertinent information is taken from other notes in the computer and bedside staff. . Sepsis Event Evaluation Height, Weight, BMI Height: '" Weight: lbs. oz. kg; 26.32 BMI Method: Exam Exam Patient acknowledged, consented, and participated in this virtual visit which was conducted using real time audio/video Vital Signs Date Time Temp Pulse Resp B/P (MAP) Pulse Ox O2 Delivery O2 Flow Rate FiO2 01/20/23 10:00 94 12 117/95 (105) 93 Room Air 01/20/23 09:19 92 Room Air 01/20/23 09:00 121 27 104/86 (92) 100 Room Air 01/20/23 08:00 94 Room Air 01/20/23 08:00 102 14 133/92 (103) 96 Room Air 01/20/23 07:59 36.4 01/20/23 07:42 94 Room Air 0.00 01/20/23 07:00 96 19 142/96 (116) 94 Room Air 01/20/23 07:00 103 01/20/23 06:00 82 17 141/99 (113) 92 Room Air 01/20/23 05:00 97 25 132/82 (99) 95 Room Air 01/20/23 04:00 94 22 116/91 (99) 95 Room Air 01/20/23 04:00 92 Room Air 01/20/23 03:37 80 118/80 01/20/23 03:00 89 18 115/94 (101) 94 Room Air 01/20/23 02:00 86 13 125/83 (97) 95 Room Air 01/20/23 01:00 95 28 107/92 (97) 94 Room Air 01/20/23 01:00 87 01/20/23 00:00 80 17 118/103 (108) 94 Room Air 01/20/23 00:00 95 Room Air 01/19/23 23:00 90 20 130/99 (109) 94 Room Air 01/19/23 22:00 101 18 125/92 (103) 94 Room Air 01/19/23 21:06 96 Room Air 01/19/23 21:00 99 26 131/95 (107) 94 Room Air 01/19/23 20:00 107 20 119/100 (106) 93 Room Air 01/19/23 20:00 96 Room Air 01/19/23 19:00 102 01/19/23 19:00 106 25 118/103 (108) 94 Room Air 01/19/23 18:47 110 110/86 01/19/23 18:00 110 21 110/86 (94) 95 Room Air 01/19/23 17:00 110 21 117/100 (109) 95 Room Air 01/19/23 16:54 95 Room Air 01/19/23 16:00 101 16 121/105 (112) 90 Room Air 01/19/23 15:00 100 23 115/94 (105) 90 Room Air 01/19/23 14:00 103 23 96/64 (71) 95 Room Air 01/19/23 13:53 95 Room Air 0.00 01/19/23 13:33 123 109/78 01/19/23 13:05 142 01/19/23 13:00 128 10 109/78 (84) 93 Room Air 01/19/23 12:50 35.6 160 97 21 01/19/23 12:15 140 10 120/86 (97) 97 Room Air 01/19/23 12:10 95 Room Air 01/19/23 11:17 131 18 107/76 95 Room Air I & O 01/20/23 07:00 Intake Total 2275 ml Output Total 1275 ml Balance 1000 ml Height & Weight Height: '" Weight: lbs. oz. kg; 26.32 BMI Method: General Appearance: No Apparent Distress, WD/WN, Chronically ill, Thin HEENT: PERRL/EOMI, Other Neck: Normal Inspection, Non Tender Respiratory: Chest Non Tender, Lungs Clear, Normal Breath Sounds, No Accessory Muscle Use Cardiovascular: Irregularly Irregular, Tachycardia, Other Capillary Refill: Less Than 3 Seconds Extremity: Normal Range of Motion, Pedal Edema Neurologic/Psychiatric: Alert, Oriented x3, No Motor/Sensory Deficits, Normal Mood/Affect Skin: Normal Color Lymphatic: No Adenopathy Results Lab Laboratory Tests 01/19/23 08:09 01/20/23 03:56 Assessment/Plan Assessment/Plan 1 MADDISON NIÑO MD Jan 20, 2023 10:51
[2023-01-20] MEDS: DOCUSATE SODIUM 100 MG (COLACE) CAP PO SCH ×2 (11:22→21:00)
[2023-01-20] MEDS ORDERED: TAMSULOSIN 0.4 MG (FLOMAX) CAP PO SCH (18:00)
[2023-01-20] MEDS ORDERED: LORazepam 1 MG (ATIVAN) TAB PO PRN (18:30)
[2023-01-20] MEDS ORDERED: AtorvaSTATin TABLET 10 MG TABLET PO SCH (21:00)
[2023-01-20] MEDS: OXYBUTYNIN (DITROPAN) 5 MG TAB PO SCH (21:31)
[2023-01-21 04:53] LABS: BASOPHILS # (AUTO) 0.1 10^3/uL (0.0-0.1); BASOPHILS % (AUTO) 0 % (0-10); EOSINOPHILS # (AUTO) 0.2 10^3/uL (0.0-0.3); EOSINOPHILS % (AUTO) 2 % (0-10); HEMATOCRIT 47 % (40-54); HEMOGLOBIN 15.8 g/dL (13.3-17.7); LYMPHOCYTES # (AUTO) 1.9 10^3/uL (1.0-4.0); LYMPHOCYTES % (AUTO) 16 % (12-44); MEAN CORPUSCULAR HEMOGLOBIN 32 pg (25-34); MEAN CORPUSCULAR HGB CONC 34 g/dL (32-36); MEAN CORPUSCULAR VOLUME 93 fL (80-99); MEAN PLATELET VOLUME 12.4 fL (9.0-12.2); MONOCYTES # (AUTO) 1.2 10^3/uL (0.0-1.0); MONOCYTES % (AUTO) 10 % (0-12); NEUTROPHILS # (AUTO) 8.7 10^3/uL (1.8-7.8); NEUTROPHILS % (AUTO) 72 % (42-75); PLATELET COUNT 165 10^3/uL (130-400); WHITE BLOOD COUNT 12.1 10^3/uL (4.3-11.0)
[2023-01-21 05:13] LABS: ALBUMIN 3.6 GM/DL (3.2-4.5); BILIRUBIN,TOTAL 1.2 MG/DL (0.1-1.0); CALCIUM 8.7 MG/DL (8.5-10.1); CREATININE SERUM 0.91 MG/DL (0.60-1.30); MAGNESIUM 2.2 MG/DL (1.6-2.4); POTASSIUM 3.9 MMOL/L (3.6-5.0); TOTAL PROTEIN 6.2 GM/DL (6.4-8.2)
[2023-01-21] MEDS ORDERED: GLIMEPIRIDE 2 MG (AMARYL) TAB PO SCH (06:30)
[2023-01-21] MEDS: inSUlin ASPART (NovoLOG) 1 UNIT/0.01 ML (CHARGE PER UNIT) SC SCH ×2 (06:33→10:54)
[2023-01-21] MEDS ORDERED: NON-FORMULARY MEDICATION 1 EA EA (Oxybutynin Chloride (Oxybutynin Chloride ER) 10 MG) PO SCH (09:00)
[2023-01-21] MEDS ORDERED: NON-FORMULARY MEDICATION 1 EA EA (Canagliflozin (Invokana) 300 MG) PO SCH (09:00)
[2023-01-21] MEDS ORDERED: FAMOTIDINE 20 MG (PEPCID) TABLET PO SCH (09:00)
[2023-01-21] MEDS ORDERED: meTOprolol TARTRATE 50 MG (LOPRESSOR) TAB PO SCH (09:00)
[2023-01-21] MEDS ORDERED: ASCORBIC ACID (VIT C) 500 MG TABLET PO SCH (09:00)
[2023-01-21] MEDS ORDERED: DIGOXIN 0.25 MG (LANOXIN) TAB PO SCH (09:00)
[2023-01-21] MEDS ORDERED: EMPAGLIFLOZIN 10 MG TABLET (JARDIANCE) PO SCH (09:00)
[2023-01-21] MEDS ORDERED: CYANOCOBALAMIN 1,000 MCG (VITAMIN B-12) TABLET PO SCH (09:00)
[2023-01-21] MEDS ORDERED: ASPIRIN E.C. 81 MG (ECOTRIN) TAB PO SCH (09:00)
[2023-01-21] MEDS ORDERED: NON-FORMULARY MEDICATION 1 EA EA (Pravastatin Sodium 40 MG) PO SCH (09:00)
[2023-01-21] MEDS: DOCUSATE SODIUM 100 MG (COLACE) CAP PO SCH (09:06)
[2023-01-21] MEDS: OXYBUTYNIN (DITROPAN) 5 MG TAB PO SCH (09:06)
[2023-01-21] MEDS: LOSARTAN 25 MG (COZAAR) TAB PO SCH (09:06)
[2023-01-21] MEDS: APIXABAN 5 MG (ELIQUIS) TABLET PO SCH (09:06)
[2023-01-21] MEDS: PANTOPRAZOLE 40 MG (PROTONIX) TAB PO SCH (09:07)
--- NOTE | 2023-01-21 09:45 | Diagnostic Imaging Report ---
PROCEDURE: US Thyroid. TECHNIQUE: Multiple real-time grayscale images were obtained of the thyroid in various projections. INDICATION: Hyperthyroidism. Right lobe of the thyroid measures 5.2 x 1.7 x 1.6 cm and the left lobe measures 4.7 x 1.1 x 1.9 cm. The isthmus is 3 mm in thickness. Both lobes of the thyroid show homogeneous echotexture. No discrete mass is detected. There is some mild increased vascularity to both lobes of the thyroid. IMPRESSION: Mild increased vascularity. Otherwise, unremarkable thyroid ultrasound. No dominant thyroid mass is detected. Dictated by: Dictated on workstation # [id number]
--- NOTE | 2023-01-21 09:51 | Progress Note ---
Subjective Date Seen by a Provider: Jan 21, 2023 Objective Exam Last Set of Vital Signs Vital Signs Date Time Temp Pulse Resp B/P (MAP) Pulse Ox O2 Delivery O2 Flow Rate FiO2 01/21/23 08:00 36.2 102 24 106/75 (85) 96 Room Air 01/20/23 19:23 0.00 01/19/23 12:50 21 Capillary Refill : Less Than 3 Seconds I&O Intake and Output 01/21/23 00:00 Intake Total 1340 ml Output Total 650 ml Balance 690 ml Intake Oral 1100 ml IV Total 240 ml Output Urine Total 650 ml # Voids 5 Results Lab Laboratory Tests 01/20/23 11:06: Glucometer 122H 01/20/23 15:37: Glucometer 256H 01/20/23 17:21: Glucometer 178H 01/20/23 19:56: Glucometer 173H 01/21/23 04:01: White Blood Count 12.1H, Red Blood Count 5.01, Hemoglobin 15.8, Hematocrit 47, Mean Corpuscular Volume 93, Mean Corpuscular Hemoglobin 32, Mean Corpuscular Hemoglobin Concent 34, Red Cell Distribution Width 14.3, Platelet Count 165, Mean Platelet Volume 12.4H, Immature Granulocyte % (Auto) 0, Neutrophils (%) (Auto) 72, Lymphocytes (%) (Auto) 16, Monocytes (%) (Auto) 10, Eosinophils (%) (Auto) 2, Basophils (%) (Auto) 0, Neutrophils # (Auto) 8.7H, Lymphocytes # (Auto) 1.9, Monocytes # (Auto) 1.2H, Eosinophils # (Auto) 0.2, Basophils # (Auto) 0.1, Immature Granulocyte # (Auto) 0.1, Sodium Level 137, Potassium Level 3.9, Chloride Level 111H, Carbon Dioxide Level 17L, Anion Gap 9, Blood Urea Nitrogen 28H, Creatinine 0.91, Estimat Glomerular Filtration Rate 92, BUN/Creatinine Ratio 31, Glucose Level 182H, Calcium Level 8.7, Corrected Calcium 9.0, Magnesium Level 2.2, Total Bilirubin 1.2H, Aspartate Amino Transf (AST/SGOT) 41H, Alanine Aminotransferase (ALT/SGPT) 100H, Alkaline Phosphatase 112, Total Protein 6.2L, Albumin 3.6 Assessment/Plan Assessment/Plan Assess & Plan/Chief Complaint Assessment: Atrial fibrillation with RVR History of atrial fibrillation since 37 years old New onset cardiomyopathy Lower extremity edema Unable to perform cardioversion due to clot in atrium Plan: Echo Cardiology consult Moved to stepdown Oral anticoagulation Clinical Quality Measures DVT/VTE Risk/Contraindication: Contraindications-Mechi: Other *list below* Other: elevated ddimer may have DVT LOUIS SAGASTUME DO Jan 21, 2023 09:51
--- NOTE | 2023-01-21 10:17 | Cardiology Progress Note ---
Subjective Date Seen by Provider: Jan 21, 2023 Time Seen by Provider: 10:17 Subjective/Events-last exam Patient is sitting in a chair, feeling well. Requesting to go home. We discussed the need for stress test, patient requested to do it as an outpatient Review of Systems General: No Chills, No Night Sweats, No Fatigue, No Malaise, No Appetite, No Other HEENT: No Head Aches, No Visual Changes, No Eye Pain, No Ear Pain, No Dysphasia, No Sinus Congestion, No Post Nasal Drip, No Sore Throat, No Other Pulmonary: Dyspnea; No Cough, No Pleuritic Chest Pain, No Other Cardiovascular: No: Chest Pain, Palpitations, Orthopnea, Paroxysmal Noc. Dyspnea, Edema, Lt Headedness, Other Objective-Cardiology Exam Last Set of Vital Signs Vital Signs 01/19/23 01/20/23 12:50 19:23 O2 Flow Rate 0.00 FiO2 21 I&O Intake and Output 01/21/23 00:00 Intake Total 1340 ml Output Total 650 ml Balance 690 ml Intake Oral 1100 ml IV Total 240 ml Output Urine Total 650 ml # Voids 5 General: Alert, Oriented X3, Cooperative, No Acute Distress HEENT: Atraumatic, PERRLA Neck: Supple, No JVD, No Thyromegaly Lungs: Clear to Auscultation, Normal Air Movement Heart: Normal S1, Normal S2, Other (Irregular irregular) Abdomen: Normal Bowel Sounds, Soft, No Tenderness, No Hepatosplenomegaly, No Masses Extremities: No Clubbing, No Cyanosis, Normal Pulses, No Tenderness/Swelling, Other (Peripheral edema) Skin: No Rashes, No Breakdown, No Significant Lesion Neuro: Normal Gait, Normal Speech, Strength at 5/5 X4 Ext, Normal Tone, Sensation Intact Psych/Mental Status: Mental Status NL, Mood NL Results Lab Laboratory Tests 01/21/23 04:01 A/P-Cardiology Admission Diagnosis Atrial fibrillation Tachycardia Congestive heart failure, acute dilated cardiomyopathy. Unknown etiology Diabetes mellitus Assessment/Plan Atrial fibrillation with rapid ventricular response. Unknown duration, history of paroxysmal atrial fibrillation in his 30s. Has been asymptomatic MARK was done on January 20, 2023 with possible left atrial appendage thrombus. Continue with oral anticoagulation for 6 weeks then we will attempt cardioversion We will maintain rate control for now 2D echo done on January 19, 2023 with dilated left ventricle ejection fraction 35 to 40%, grade 3 diastolic dysfunction, biatrial enlargement. Severe mitral regurgitation, PA pressure of 40 mmHg, PFO with aneurysmal intra-atrial septum [id number] score 4, starting on oral anticoagulation with Eliquis. Congestive heart failure, acute left ventricular systolic dysfunction, ejection fraction 35 to 40%. Planning to start beta-blockers and ARB once his blood pressure is more stable. Underlying etiology is unknown could be secondary to atrial fibrillation. Patient had exposure to tick bite. Underlying coronary artery disease cannot be excluded. Planning for a stress test as an outpatient Mild troponin elevation, probably secondary to tachycardia and congestive heart failure. Planning for stress test once clinically stable. Continue to monitor Hyperthyroidism, underlying etiology is unknown Ultrasound of the thyroid did not show any masses. Managed by medical team Borderline hypotension. Secondary to Cardizem drip Monitor blood pressure closely Peripheral edema, planning to start diuresing once his blood pressure is more stable. Hyperlipidemia, evaluate lipid profile Hold statin due to elevated liver enzymes Elevated liver enzymes. Could be passive hepatic congestion. Improving slightly. Continue to monitor Diabetes mellitus, poorly controlled, followed and managed by primary care physician Family history of coronary artery disease Multiple tick bite exposure recently. We will evaluate take panel and Lyme titers ANA CRISTINA ROMANO MD Jan 21, 2023 10:17
[2023-01-21] MEDS ORDERED: DILT360C26 PO (10:22)
[2023-01-21] MEDS ORDERED: SPIR25TA PO (10:22)
[2023-01-21] MEDS ORDERED: METO50TA15 PO (10:22)
[2023-01-21] MEDS ORDERED: ATOR10TA66 PO (10:22)
[2023-01-21] MEDS ORDERED: LOSA25TA41 PO (10:22)
[2023-01-21] MEDS ORDERED: APIX5TAB PO (10:22)
[2023-01-21] MEDS ORDERED: PANT40TA52 PO (10:26)
--- NOTE | 2023-01-21 10:26 | Discharge Summary ---
Diagnosis/Chief Complaint Date of Admission Jan 19, 2023 at 12:05 Date of Discharge Discharge Date: Jan 21, 2023 Discharge Diagnosis Assessment: Atrial fibrillation with RVR History of atrial fibrillation since 37 years old New onset cardiomyopathy Lower extremity edema Unable to perform cardioversion due to clot in atrium Discharge Summary Discharge Physical Examination Allergies: Coded Allergies: Penicillins (Verified Allergy, Unknown, 01/19/23) Vitals & I&Os Vital Signs Date Time Temp Pulse Resp B/P (MAP) Pulse Ox O2 Delivery O2 Flow Rate FiO2 01/21/23 12:30 01/21/23 11:03 97 Room Air 01/21/23 08:00 36.2 102 24 01/20/23 19:23 0.00 01/19/23 12:50 21 General Appearance: Alert, Oriented X3, Cooperative Respiratory: Clear to Auscultation Cardiovascular: Other (irr irr) Hospital Course Was the Problem List Reviewed?: Yes Uneventful course after he was admitted from [facility] with AF RVR after a 30 year known hx of AF but no meds for anti-coagulation. Patient was placed on Cardizem drip and Eliquis. Cardioversion could not be completed due to clot in atrium. Patient was maintained on cardiac meds per Dr Ashford and was DC with close f/u with Dr Ashford in 1 day. Labs (last 24 hrs) Laboratory Tests 01/19/23 08:09: White Blood Count 10.4, Red Blood Count 5.62H, Hemoglobin 17.8H, Hematocrit 53, Mean Corpuscular Volume 95, Mean Corpuscular Hemoglobin 32, Mean Corpuscular Hemoglobin Concent 34, Red Cell Distribution Width 14.3, Platelet Count 169, Mean Platelet Volume 12.0, Immature Granulocyte % (Auto) 0, Neutrophils (%) (Auto) 75, Lymphocytes (%) (Auto) 15, Monocytes (%) (Auto) 9, Eosinophils (%) (Auto) 1, Basophils (%) (Auto) 1, Neutrophils # (Auto) 7.8, Lymphocytes # (Auto) 1.5, Monocytes # (Auto) 0.9, Eosinophils # (Auto) 0.1, Basophils # (Auto) 0.1, Immature Granulocyte # (Auto) 0.0, Prothrombin Time 14.6, INR Comment 1.1, Activated Partial Thromboplast Time 26, D-Dimer 1.81H, Sodium Level 139, Potassium Level 3.8, Chloride Level 104, Carbon Dioxide Level 23, Anion Gap 12, Blood Urea Nitrogen 27H, Creatinine 0.91, Estimat Glomerular Filtration Rate 92, BUN/Creatinine Ratio 30, Glucose Level 248H, Calcium Level 9.6, Corrected Calcium 9.4, Magnesium Level 2.3, Total Bilirubin 0.9, Aspartate Amino Transf (AST/SGOT) 139H, Alanine Aminotransferase (ALT/SGPT) 162H, Alkaline Phosphatase 156H, Troponin I < 0.30, Pro-B-Type Natriuretic Peptide 5438.0H, Total Protein 7.3, Albumin 4.2, Serum Alcohol < 10 01/19/23 12:32: Glucometer 155H 01/19/23 14:34: Lyme Disease Screen IgG & IgM Ab 0.04, Lyme Antibody Interpretation Negative, SARS-CoV-2 IgG Ab Nucleocapsid Negative, [place] Antibody <1:20 01/19/23 16:37: Glucometer 175H 01/19/23 21:28: Glucometer 166H 01/20/23 03:56: White Blood Count 10.7, Red Blood Count 4.97, Hemoglobin 15.7, Hematocrit 47, Mean Corpuscular Volume 94, Mean Corpuscular Hemoglobin 32, Mean Corpuscular Hemoglobin Concent 34, Red Cell Distribution Width 14.2, Platelet Count 142, Mean Platelet Volume 12.6H, Immature Granulocyte % (Auto) 0, Neutrophils (%) (Auto) 72, Lymphocytes (%) (Auto) 16, Monocytes (%) (Auto) 10, Eosinophils (%) (Auto) 1, Basophils (%) (Auto) 0, Neutrophils # (Auto) 7.8, Lymphocytes # (Auto) 1.8, Monocytes # (Auto) 1.0, Eosinophils # (Auto) 0.1, Basophils # (Auto) 0.0, Immature Granulocyte # (Auto) 0.0, Sodium Level 139, Potassium Level 3.7, Chloride Level 111H, Carbon Dioxide Level 17L, Anion Gap 11, Blood Urea Nitrogen 24H, Creatinine 0.80, Estimat Glomerular Filtration Rate 97, BUN/Creatinine Ratio 30, Glucose Level 120H, Calcium Level 8.6, Corrected Calcium 9.0, Phosphorus Level 3.1, Magnesium Level 2.1, Total Bilirubin 1.7H, Aspartate Amino Transf (AST/SGOT) 64H, Alanine Aminotransferase (ALT/SGPT) 122H, Alkaline Phosphatase 97, Troponin I 0.060H, Total Protein 5.8L, Albumin 3.5, Thyroid Stimulating Hormone (TSH) 0.12L, TSH [place] Testing 1.81 01/20/23 11:06: Glucometer 122H 01/20/23 15:37: Glucometer 256H 01/20/23 17:21: Glucometer 178H 01/20/23 19:56: Glucometer 173H 01/21/23 04:01: White Blood Count 12.1H, Red Blood Count 5.01, Hemoglobin 15.8, Hematocrit 47, Mean Corpuscular Volume 93, Mean Corpuscular Hemoglobin 32, Mean Corpuscular Hemoglobin Concent 34, Red Cell Distribution Width 14.3, Platelet Count 165, Mean Platelet Volume 12.4H, Immature Granulocyte % (Auto) 0, Neutrophils (%) (Auto) 72, Lymphocytes (%) (Auto) 16, Monocytes (%) (Auto) 10, Eosinophils (%) (Auto) 2, Basophils (%) (Auto) 0, Neutrophils # (Auto) 8.7H, Lymphocytes # (Auto) 1.9, Monocytes # (Auto) 1.2H, Eosinophils # (Auto) 0.2, Basophils # (Auto) 0.1, Immature Granulocyte # (Auto) 0.1, Sodium Level 137, Potassium Level 3.9, Chloride Level 111H, Carbon Dioxide Level 17L, Anion Gap 9, Blood Urea Nitrogen 28H, Creatinine 0.91, Estimat Glomerular Filtration Rate 92, BUN/Creatinine Ratio 31, Glucose Level 182H, Calcium Level 8.7, Corrected Calcium 9.0, Magnesium Level 2.2, Total Bilirubin 1.2H, Aspartate Amino Transf (AST/SGOT) 41H, Alanine Aminotransferase (ALT/SGPT) 100H, Alkaline Phosphatase 1 12, Total Protein 6.2L, Albumin 3.6 01/21/23 10:47: Glucometer 174H Pending Labs Laboratory Tests 01/19/23 08:09: White Blood Count 10.4, Red Blood Count 5.62, Hemoglobin 17.8, Hematocrit 53, Mean Corpuscular Volume 95, Mean Corpuscular Hemoglobin 32, Mean Corpuscular Hemoglobin Concent 34, Red Cell Distribution Width 14.3, Platelet Count 169, Mean Platelet Volume 12.0, Immature Granulocyte % (Auto) 0, Neutrophils (%) (Auto) 75, Lymphocytes (%) (Auto) 15, Monocytes (%) (Auto) 9, Eosinophils (%) (Auto) 1, Basophils (%) (Auto) 1, Neutrophils # (Auto) 7.8, Lymphocytes # (Auto) 1.5, Monocytes # (Auto) 0.9, Eosinophils # (Auto) 0.1, Basophils # (Auto) 0.1, Immature Granulocyte # (Auto) 0.0, Prothrombin Time 14.6, INR Comment 1.1, Activated Partial Thromboplast Time 26, D-Dimer 1.81, Sodium Level 139, Potass ium Level 3.8, Chloride Level 104, Carbon Dioxide Level 23, Anion Gap 12, Blood Urea Nitrogen 27, Creatinine 0.91, Estimat Glomerular Filtration Rate 92, BUN/Creatinine Ratio 30, Glucose Level 248, Calcium Level 9.6, Corrected Calcium 9.4, Magnesium Level 2.3, Total Bilirubin 0.9, Aspartate Amino Transf (AST/SGOT) 139, Alanine Aminotransferase (ALT/SGPT) 162, Alkaline Phosphatase 156, Troponin I < 0.30, Pro-B-Type Natriuretic Peptide 5438.0, Total Protein 7.3, Albumin 4.2, Serum Alcohol < 10 01/19/23 12:32: Glucometer 155 01/19/23 14:34: Lyme Disease Screen IgG & IgM Ab 0.04, Lyme Antibody Interpretation Negative, Ehrlichia chaffeensis IgG Antibody [Pending], Ehrlichia chaffeensis IgM Antibody [Pending], Spotted Fever Group IgG Antibody [Pending], Spotted Fever Group IgM Antibody [Pending], SARS-CoV-2 IgG Ab Nucleocapsid Negative, [place] Antibody <1:20 01/19/23 16:37: Glucometer 175 01/19/23 21:28: Glucometer 166 01/20/23 03:56: White Blood Count 10.7, Red Blood Count 4.97, Hemoglobin 15.7, Hematocrit 47, Mean Corpuscular Volume 94, Mean Corpuscular Hemoglobin 32, Mean Corpuscular Hemoglobin Concent 34, Red Cell Distribution Width 14.2, Platelet Count 142, Mean Platelet Volume 12.6, Immature Granulocyte % (Auto) 0, Neutrophils (%) (Auto) 72, Lymphocytes (%) (Auto) 16, Monocytes (%) (Auto) 10, Eosinophils (%) (Auto) 1, Basophils (%) (Auto) 0, Neutrophils # (Auto) 7.8, Lymphocytes # (Auto) 1.8, Monocytes # (Auto) 1.0, Eosinophils # (Auto) 0.1, Basophils # (Auto) 0.0, Immature Granulocyte # (Auto) 0.0, Sodium Level 139, Potassium Level 3.7, Chloride Level 111, Carbon Dioxide Level 17, Anion Gap 11, Blood Urea Nitrogen 24, Creatinine 0.80, Estimat Glomerular Filtration Rate 97, BUN/Creatinine Ratio 30, Glucose Level 120, Calcium Level 8.6, Corrected Calcium 9.0, Phosphorus Level 3.1, Magnesium Level 2.1, Total Bilirubin 1.7, Aspartate Amino Transf (AST/SGOT) 64, Alanine Aminotransferase (ALT/SGPT) 122, Alkaline Phosphatase 97, Troponin I 0.060, Total Protein 5.8, Albumin 3.5, Thyroid Stimulating Hormone (TSH) 0.12, TSH [place] Testing 1.81 01/20/23 11:06: Glucometer 122 01/20/23 15:37: Glucometer 256 01/20/23 17:21: Glucometer 178 01/20/23 19:56: Glucometer 173 01/21/23 04:01: White Blood Count 12.1, Red Blood Count 5.01, Hemoglobin 15.8, Hematocrit 47, Mean Corpuscular Volume 93, Mean Corpuscular Hemoglobin 32, Mean Corpuscular Hemoglobin Concent 34, Red Cell Distribution Width 14.3, Platelet Count 165, Mean Platelet Volume 12.4, Immature Granulocyte % (Auto) 0, Neutrophils (%) (Auto) 72, Lymphocytes (%) (Auto) 16, Monocytes (%) (Auto) 10, Eosinophils (%) (Auto) 2, Basophils (%) (Auto) 0, Neutrophils # (Auto) 8.7, Lymphocytes # (Auto) 1.9, Monocytes # (Auto) 1.2, Eosinophils # (Auto) 0.2, Basophils # (Auto) 0.1, Immature Granulocyte # (Auto) 0.1, Sodium Level 137, Potassium Level 3.9, Chloride Level 111, Carbon Dioxide Level 17, Anion Gap 9, Blood Urea Nitrogen 28, Creatinine 0.91, Estimat Glomerular Filtration Rate 92, BUN/Creatinine Ratio 31, Glucose Level 182, Calcium Level 8.7, Corrected Calcium 9.0, Magnesium Level 2.2, Total Bilirubin 1.2, Aspartate Amino Transf (AST/SGOT) 41, Alanine Aminotransferase (ALT/SGPT) 100, Alkaline Phosphatase 112, Total Protein 6.2, Albumin 3.6 01/21/23 10:47: Glucometer 174 Discharge Home Medications: Active Scripts Active Pantoprazole Sodium 40 Mg Tablet.dr 40 Mg PO DAILY Aldactone (Spironolactone) 25 Mg Tablet 25 Mg PO DAILY Cardizem Cd (Diltiazem HCl) 360 Mg Cap.er.24h 360 Mg PO DAILY Losartan Potassium 25 Mg Tablet 25 Mg PO DAILY Metoprolol Tartrate 50 Mg Tablet 50 Mg PO BID Atorvastatin Calcium 10 Mg Tablet 10 Mg PO HS Eliquis (Apixaban) 5 Mg Tablet 5 Mg PO BID Reported Vitamin B-12 (Cyanocobalamin (Vitamin B-12)) 1,000 Mcg Tablet 1,000 Mcg PO DAILY Vitamin C (Ascorbic Acid) 500 Mg Tablet 500 Mg PO DAILY Aspirin EC (Aspirin) 81 Mg Tablet.dr 81 Mg PO DAILY Acid Programming Engineer (FAMOTIDINE) (Famotidine) 20 Mg Tablet 20 Mg PO DAILY LAST FILLED 07-10-2022 #180/180 DAY SUPPLY Invokana (Canagliflozin) 300 Mg Tablet 300 Mg PO DAILY Glimepiride 4 Mg Tablet 4 Mg PO DAILY Oxybutynin Chloride ER (Oxybutynin Chloride) 10 Mg Tab.er.24 10 Mg PO DAILY Flomax (Tamsulosin HCl) 0.4 Mg Cap 0.4 Mg PO DAILY Instructions to patient/family Please see electronic discharge instructions given to patient. Clinical Quality Measures DVT/VTE Risk/Contraindication: Contraindications-Mechi: Other *list below* Other: elevated ddimer may have DVT LOUIS SAGASTUME DO Jan 21, 2023 10:26
[2023-01-21] MEDS: RT-ALBUTEROL/IPRATROPIUM 3 ML (DUONEB) VIAL INH SCH (11:02)
== END 2023-01-21 10:25 | disposition home or self-care (01) ==
LOC: EDUNIT# 07:54 → ER FS 07:56 → ICU 12:05 → CSD 01-20 12:38
PROVIDERS: ADMIT Internal Medicine; ATTEND Internal Medicine
DX: I48.0 Paroxysmal atrial fibrillation (principal); R60.0 Localized edema; Z79.01 Long term (current) use of anticoagulants; I50.21 Acute systolic (congestive) heart failure; R77.8 Other specified abnormalities of plasma proteins; E78.5 Hyperlipidemia, unspecified; R94.5 Abnormal results of liver function studies; E11.65 Type 2 diabetes mellitus with hyperglycemia; I42.0 Dilated cardiomyopathy; Z87.891 Personal history of nicotine dependence; J90 Pleural effusion, not elsewhere classified; I08.1 Rheumatic disorders of both mitral and tricuspid valves; R79.1 Abnormal coagulation profile
CPT/HCPCS: 36415; 71045; 71275; 76536; 76705; 80053 ×3; 82947 ×3; 83735 ×3; 83880; 84100; 84443 ×2; 84484 ×2; 85025 ×3; 85379; 85610; 85730; 86618; 86666 ×2; 86668; 86757 ×2; 86769; 93005 ×2; 93312; 93320; 93325; 93970; 94640 ×3; 96361; 96366; 96374; 96375; 96376; 99284; C8929; G0378 ×2; G0480; 80320; 93306; Q9967

== ENCOUNTER → 2023-01-30 | Outpatient (CLI) | payer MEDICARE ==
[~2023-01-30] MED LIST: APIX5TAB PO; ASCO500T17 PO; ASPI-1238 PO; ATOR10TA66 PO; CANA300T PO; CATHETER FLUSH 10 ML SYR IVP PRN; CYAN-41 PO; DILT360C26 PO; FAMO20TA3 PO; GLIM4TAB5 PO; LOSA25TA41 PO; METO50TA15 PO; OXYB10TA29 PO; PANT40TA52 PO; PRAV40TA2 PO; REGADENOSON 0.4 MG/5 ML SYR (LEXISCAN) IV ONE; SPIR25TA PO; TMSL.4C PO; meTOprolol 5 MG/5 ML (LOPRESSOR) VIAL IV ONE; meTOprolol 5 MG/5 ML (LOPRESSOR) VIAL ONE
[2023-01-30 08:03] VITALS: BP 127/92
--- NOTE | 2023-01-30 16:18 | Cardiology Stress Test Report ---
Stress Test Report Date of Procedure/Referring: Date of Procedure: Jan 30, 2023 PCP Aric Wen MD Admitting Physician Admitting Physician: Attending Physician: Queta Nix Indications: CHF Baseline Heart Rate: 106 Baseline Blood Pressure: Blood Pressure Systolic: 127 Blood Pressure Diastolic: 92 Baseline Vitals Vital Signs Date Time Temp Pulse Resp B/P (MAP) Pulse Ox O2 Delivery O2 Flow Rate FiO2 01/30/23 08:03 102 127/92 (104) Baseline EKG: Baseline EKG: a fib Summary After explaining the procedure to the patient, he signed a consent and then brought to the stress nuclear laboratory. Patient received 0.4 mg Lexiscan for stress test, ECG, heart rate and blood pressure were monitored continuously. Resting and stress dose of radio tracer were injected, imaging was acquired and reviewed in short axis, horizontal long axis and vertical long axis views. TID: 0.92 SSS: 4 SDS: 4 EF: 29 Patient tolerated Lexiscan well Baseline atrial fibrillation persisted during test Diaphragmatic attenuation with mild decrease uptake at the mid to apical inferior wall with mild reversibility Dilated left ventricle with diffuse left ventricular hypokinesia, ejection fraction 29%, could be affected by the underlying atrial fibrillation Copy Copies To 1: ARIC WEN MD, BASHAR J MD Jan 30, 2023 16:18
== END ==
LOC: CARD 07:00
PROVIDERS: ATTEND Physician Assistant
DX: I50.9 Heart failure, unspecified (principal)
CPT/HCPCS: 78452; 93017; A9502

== ENCOUNTER 2023-03-07 06:42 | Day surgery (SDC) | payer MEDICARE ==
[~2023-03-07] VITALS: Ht 185.4 cm; Wt 85.5 kg
[~2023-03-07 06:42] MED LIST changes: -CATHETER FLUSH 10 ML SYR IVP PRN; -REGADENOSON 0.4 MG/5 ML SYR (LEXISCAN) IV ONE; -meTOprolol 5 MG/5 ML (LOPRESSOR) VIAL IV ONE; -meTOprolol 5 MG/5 ML (LOPRESSOR) VIAL ONE
[2023-03-07] MEDS ORDERED: LIDOCAINE 1% INJ 20 ML VIAL ONE (06:59)
[2023-03-07] MEDS ORDERED: HEParin (CATH LAB) 2,000 ML IV ONE (06:59)
[2023-03-07] MEDS ORDERED: NS IV 1000 ML 1,000 ML ONE (06:59)
[2023-03-07] MEDS ORDERED: NS IV 1000 ML 1,000 ML IV SCH ×3 (07:00→09:15)
[2023-03-07 07:25] VITALS: BP 123/78
[2023-03-07 07:28] LABS: HEMATOCRIT 45 % (40-54); HEMOGLOBIN 15.4 g/dL (13.3-17.7); MEAN CORPUSCULAR HEMOGLOBIN 31 pg (25-34); MEAN CORPUSCULAR HGB CONC 35 g/dL (32-36); MEAN CORPUSCULAR VOLUME 90 fL (80-99); MEAN PLATELET VOLUME 11.1 fL (9.0-12.2); PLATELET COUNT 180 10^3/uL (130-400); WHITE BLOOD COUNT 11.8 10^3/uL (4.3-11.0)
[2023-03-07] MEDS ORDERED: SEMA1PEN3 SQ (07:44)
[2023-03-07] MEDS ORDERED: CHOL500049 PO (07:44)
[2023-03-07] MEDS ORDERED: POTA-177 PO (07:44)
[2023-03-07] MEDS ORDERED: FURO20TA4 PO (07:44)
[2023-03-07] MEDS ORDERED: FLUT9.9S NS (07:44)
--- NOTE | 2023-03-07 07:44 | Diagnostic Imaging Report ---
INDICATION: Abnormal stress test, dyspnea. Frontal chest obtained at 0719 a.m. and compared to 01/19/2023. Heart and mediastinal silhouette are normal in appearance. The lungs are clear. There is no pneumothorax or pleural fluid. IMPRESSION: No acute process in the chest. Dictated by: Dictated on workstation # [id number]
[2023-03-07 07:49] LABS: ALBUMIN 4.1 GM/DL (3.2-4.5); BILIRUBIN,TOTAL 0.8 MG/DL (0.1-1.0); CALCIUM 9.1 MG/DL (8.5-10.1); CREATININE SERUM 0.92 MG/DL (0.60-1.30); TOTAL PROTEIN 7.1 GM/DL (6.4-8.2)
[2023-03-07] MEDS ORDERED: VERAPAMIL 5 MG/2 ML (CALAN) VIAL IV ONE (07:50)
[2023-03-07] MEDS ORDERED: fentaNYL INJ 100 MCG/2 ML AMP ONE (07:50)
[2023-03-07] MEDS ORDERED: proPOfol 200 MG/20 ML (DIPRIVAN) VIAL IV ONE (07:50)
[2023-03-07] MEDS ORDERED: NITRO DRIP 25000 MCG/D5W 250 ML IV ONE (07:50)
[2023-03-07] MEDS ORDERED: HEParin 1000 UNIT/ML (10ML VIAL) FOR BOLUS ONE (07:50)
[2023-03-07] MEDS ORDERED: MIDAZOLAM 5 MG/5 ML (VERSED) VIAL ONE (07:50)
[2023-03-07 08:02] LABS: INR 1.2 (0.8-1.4); PROTHROMBIN TIME PATIENT 14.9 SEC (12.2-14.7)
--- NOTE | 2023-03-07 08:09 | Cardiac Procedure Note-CS/ASA ---
Pre-Procedure Note Pre-Op Procedure Note Date of Available H&P: Feb 12, 2023 Date H&P Reviewed: Mar 07, 2023 Time H&P Reviewed: 08:09 History & Physical: H&P Reviewed, Patient Examed, No changes noted Pre-Operative Diagnosis: Atrial fibrillation Moderate Sedation PreProcedure Time 08:09 ASA Score 3 Airway Lungs Heart ASA score ASA 1: a normal healthy patient ASA 2: a patient with a mild systemic disease (mid diabetes, controlled hypertension, obesity ASA 3: a patient with a severe systemic disease that limits activity (angina, COPD, prior Myocardial infarction) ASA 4: a patient with an incapacitating disease that is a constant threat to life (CHF, renal failure) ASA 5: a moribund patient not expected to survive 24 hrs. (ruptured aneurysm) ASA 6: a declared brain- patient whose organs are being harvested. For emergent operations, add the letter E after the classification Mallampati Classification Grade 3 Sedation Plan Analgesia, Amnesia, Plan communicated to team members, Discussed options with patient/fam, Discussed risks with patient/fam The patient is an appropriate candidate to undergo the planned procedure, sedation, and anesthesia. The patient immediately re-assessed prior to indication. ANA CRISTINA ROMANO MD Mar 07, 2023 08:09
--- NOTE | 2023-03-07 09:02 | Anesthesia-General Post-Op ---
MAC Patient Condition Mental Status/LOC: Same as Preop Cardiovascular: Satisfactory Nausea/Vomiting: Absent Respiratory: Satisfactory Pain: Controlled Complications: Absent Post Op Complications Complications None Follow Up Care/Instructions Patient Instructions None needed. Anesthesiology Discharge Order Discharge Order Patient is doing well, no complaints, stable vital signs, no apparent adverse anesthesia problems. No complications reported per nursing. ASIYA PARKER CRNA Mar 07, 2023 09:02
[2023-03-07] MEDS ORDERED: AMIO200T65 PO (09:04)
--- NOTE | 2023-03-07 09:05 | Discharge Inst-Post CATH ---
Discharge Inst-CATH/EP Problems Reviewed?: Yes Post Cardiac Cath/EP D/C Inst Follow Up/Plan Appointment with Dr. Ashford's office in 1 week <b>CARDIAC CATH/EP PROCEDURE DISCHARGE INSTRUCTIONS</b> ACTIVITY * Go Home directly and rest. * Limit activity of the leg (or wrist if it was used) for 7 days including aerobics, swimming, jogging, bicycling, etc. * Restrict stair-climbing for 7 days if possible, if not, climb up with your non-cath leg, then bring together on the same step. * Avoid lifting, pushing, pulling or excessive movement of the affected extremity for 7 days. * Customary sexual activity may be resumed after 2 days-use caution not to use a position that strains or causes pain to the affected extremity. * No driving for 24 hours. * NO SMOKING. * Avoid straining for bowel movements for 7 days. * Gentle walking on level ground is allowed. * Returning to work will depend on the type of procedure and the results. Your doctor will discuss this with you. CALL YOUR DOCTOR FOR ANY OF THE FOLLOWING: *If bleeding from the puncture site occurs- Apply gentle pressure to site with clean cloth and call your doctor or EMS. * If a knot or lump forms under the skin, increases in size, or causes pain. * If bruising appears to be worsening or moving further down your leg instead of disappearing. * Temperature above 101 F. CARE OF YOUR GROIN INCISION; * Bruising or purple discoloration of the skin near the puncture site is common. * You may shower only, no bathtub bathing for 5 days. Be careful to avoid slipping as your leg may feel stiff. * If a closure device was used on your femoral artery, please see the attached guide regarding care of the device and your leg. * Leave dressing on FOR 24 hours. CARE OF YOUR WRIST INCISION; * Bruising or purple discoloration of the skin near the puncture site is common. * You may shower. * DO NOT submerge wrist. * Leave dressing on FOR 24 hours. ANA CRISTINA ASHFORD MD Mar 07, 2023 09:05
--- NOTE | 2023-03-07 09:10 | Cardiac Cath Report ---
Cardiac Cath Report Physician (s)/Amusement Machine Mechanic (s) Physician ANA CRISTINA ROMANO MD Pre-Procedure Diagnosis Pre-Procedure Diagnosis: Atrial fibrillation Post-Procedure Note Procedure Start Date: Mar 07, 2023 Name of Procedure: Left heart catheterization Findings/Procedure Note PROCEDURE NOTE: 67 years old gentleman with severe cardiomyopathy, abnormal stress test, atrial fibrillation, scheduled for cardiac catheterization. After explaining the procedure to the patient, all pros and cons were explained, all questions were answered. The patient signed the consent and then he was placed in the cardiac catheterization laboratory. Groin was prepped in SL fashion local anesthesia was used. Sheath placed in the right radial artery, [place] catheter was advanced to the left ventricular cavity, pressure was measured, pullback LV to aorta was done, engage the left coronary system and angiogram was done then exchanged the catheter Jodi right catheter and engaged the right coronary artery and angiogram was done. At the end of the procedure the sheath was removed. Vascular band was used Patient received further anesthesia and cardioversion was done FINDINGS: Hemodynamics LV 100/16, end-diastolic pressure of 16 Aorta 94/65 mean of 78 ANATOMY: Left Main is free of obstructive disease Left Anterior Descending has mild disease nonobstructive disease Left Circumflex is moderate in size with 50% ostial obtuse marginal branch stenosis nonobstructive disease Right Coronary Artery is a large dominant artery totally occluded at the midportion, collateral filling of the distal right coronary artery from the right and left LV Gram was not done, pressure was measured CONCLUSION: Total occlusion of the dominant right coronary artery with right to left collaterals filling the PDA and PLV 50% ostial obtuse marginal branch otherwise nonobstructive disease Normal left ventricular end-diastolic pressure DISCUSSION AND RECOMMENDATION: Patient underwent cardioversion, retained sinus rhythm, I will arrange for 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 His Lexiscan stress test showed reversible ischemia on the inferior wall, the inferior wall appeared to be viable Anesthesia Type: Conscious Sedation Estimated blood loss (mL): 10 ml Contrast Amount: 46 ml Total Radiation Dose: 769 mGy Post-Procedure Diagnosis Post-operative diagnosis: Coronary artery disease Congestive heart failure, chronic compensated left ventricular systolic dysfunction, ischemic cardiomyopathy Atrial fibrillation Hypertension Diabetes mellitus ANA CRISTINA ROMANO MD Mar 07, 2023 09:10
--- NOTE | 2023-03-07 09:11 | Cardioversion ---
Cardioversion PROCEDURE PHYSICIAN: Ana Cristina Ashford DATE OF PROCEDURE: 03/07/23 DIRECT EXTERNAL ELECTRICAL CARDIOVERSION: Indications: Atrial Fibrillation with rapid ventricular rate Preoperative diagnoses: Atrial Fibrillation with rapid ventricular rate Postoperative diagnosis: Sinus rhythm, Successful Electrical Cardioversion Anesthesia: By Anesthesia services Complications: None Specimen: None Contrast: 0 Flouroscopy: none Procedure Details: The patient was brought the slab stripper after informed consent was taken, all the risks and complications were explained including the risk of stroke. Electrical cardioversion was carried out with anesthesia support with propofol. 120 joules of synchronized shock was delivered through external patches which promptly restored sinus rhythm. The patient tolerated the procedure well. Conclusions: Successful electrical cardioversion terminating atrial fibrillation Patient return to atrial fibrillation after 10 minutes from the cardioversion Final Diagnosis: Coronary artery disease Congestive heart failure, chronic compensated left ventricular systolic dysfunction, ischemic cardiomyopathy Atrial fibrillation Hypertension Hyperlipidemia ANA CRISTINA ASHFORD MD Mar 07, 2023 09:11
[2023-03-07] MEDS ORDERED: AMIODARONE FOR DRIP 450 MG in NORMAL SALINE (EXCEL) 250 ML 250 ML IV SCH (09:15)
[2023-03-07] MEDS ORDERED: AMIODARONE FOR BOLUS 150 MG in NS (IVPB) 100 ML 100 ML IV ONE (09:15)
[2023-03-07 10:00] VITALS: BP 104/73
[2023-03-07 10:18] VITALS: BP 110/75
[2023-03-07 10:30] VITALS: BP 110/70
[2023-03-07] MEDS ORDERED: ACETAMINOPHEN 500 MG TABLET PO ONE (10:45)
[2023-03-07] MEDS ORDERED: ACETAMINOPHEN 500 MG TABLET ONE (10:45)
[2023-03-07 11:00] VITALS: BP 110/72
[2023-03-07 11:38] VITALS: BP 110/72
[2023-03-07] MEDS ORDERED: meTOprolol TARTRATE 50 MG (LOPRESSOR) TAB PO SCH (21:00)
[2023-03-07] MEDS ORDERED: APIXABAN 5 MG TABLET PO SCH (21:00)
[2023-03-08] MEDS ORDERED: TAMSULOSIN 0.4 MG (FLOMAX) CAP PO SCH (09:00)
[2023-03-08] MEDS ORDERED: NON-FORMULARY MEDICATION 1 EA EA (Canagliflozin (Invokana) 300 MG) PO SCH (09:00)
[2023-03-08] MEDS ORDERED: NON-FORMULARY MEDICATION 1 EA EA (Glimepiride 4 MG) PO SCH (09:00)
[2023-03-08] MEDS ORDERED: DILTIAZEM HCL 360 MG PO SCH (09:00)
[2023-03-08] MEDS ORDERED: PANTOPRAZOLE 40 MG (PROTONIX) TAB PO SCH (09:00)
[2023-03-08] MEDS ORDERED: SPIRONOLACTONE 25 MG (ALDACTONE) TAB PO SCH (09:00)
[2023-03-08] MEDS ORDERED: LOSARTAN 25 MG (COZAAR) TAB PO SCH (09:00)
== END 2023-03-07 12:01 | disposition home or self-care (01) ==
LOC: CATH 06:42 → SDC 09:54 → CATH 12:01
PROVIDERS: ATTEND Internal Medicine Cardiovascular Disease
DX: I48.91 Unspecified atrial fibrillation (principal); I25.10 Atherosclerotic heart disease of native coronary artery without angina pectoris; I11.0 Hypertensive heart disease with heart failure; I50.23 Acute on chronic systolic (congestive) heart failure; I25.5 Ischemic cardiomyopathy; E11.9 Type 2 diabetes mellitus without complications; I34.0 Nonrheumatic mitral (valve) insufficiency; E05.90 Thyrotoxicosis, unspecified without thyrotoxic crisis or storm; R60.9 Edema, unspecified; E78.5 Hyperlipidemia, unspecified; I65.23 Occlusion and stenosis of bilateral carotid arteries; F17.290 Nicotine dependence, other tobacco product, uncomplicated; Q21.12 Patent foramen ovale; Z79.01 Long term (current) use of anticoagulants; Z79.84 Long term (current) use of oral hypoglycemic drugs
CPT/HCPCS: 71045; 80053; 80061; 85027; 85610; 85730; 87081; 92960; 93005; 93458; C1769; C1894; 36415

== ENCOUNTER → 2023-03-12 07:34 | Day surgery (SDC) | payer MEDICARE ==
[~2023-03-12 07:34] MED LIST changes: +AMIO200T65 PO; +CHOL500049 PO; +FLUT9.9S NS; +FURO20TA4 PO; +NS IV 1000 ML 1,000 ML IV SCH; +POTA-177 PO; +SEMA1PEN3 SQ
== END | disposition home or self-care (01) ==
LOC: CATH 07:34
PROVIDERS: ATTEND Internal Medicine Cardiovascular Disease
DX: I48.91 Unspecified atrial fibrillation (principal); Z53.8 Procedure and treatment not carried out for other reasons
CPT/HCPCS: 93005